=== PATIENT | male | born 1960 | race Caucasian/White ===

== ENCOUNTER 2017-07-23 17:31 | Observation (INO) | payer MEDICARE ==
[~2017-07-23] VITALS: Ht 177.8 cm; Wt 103.7 kg
[~2017-07-23 17:31] MED LIST: ASPI81TA82 PO; BACT PO; HUMALOGP SQ; LANTUSP SQ; LORT7.5T3 PO; LYRI225C PO; ZOLP10TA3
[2017-07-23 17:38] VITALS: BP 166/85; PULSE 86; RESP 16; TEMP 98.7; O2SAT 95
--- NOTE | 2017-07-23 19:12 | PD ---
HPI Chief Complaint: Skin Problem Time Seen by Provider: 19:03 Travel History International Travel<30 days: No Contact w/Intl Traveler<30days: No Traveled to known affect area: No History of Present Illness HPI 56-year-old diabetic male presents to the ED for evaluation at 2 day history of pain and redness of his left BKA stump. Pain rated 9/10, constant, worsened by ambulation. No alleviating factors reported. He states that [place] is visiting from [place] of state and has been walking more than usual. He states that the pain came on gradually and has worsened over the course of the last 2 days. Denies fever, chills, nausea, vomiting. States that is blood sugars have been in the low 400s for the last few days. He treated at home with 7.5 [place], last dose around 1 PM with no improvement of symptoms. PFSH Past Medical History Hx Anticoagulant Therapy: No Cerebrovascular Accident: Yes (?? TIA) Diabetes: Yes Past Surgical History Cardiac Surgery: Yes (LEFT LEG STENTS) Eye Surgery: Yes (LASER SURGERY) Social History Alcohol Use: No Tobacco Use: No Substance Use: No Allergies-Medications (Allergen,Severity, Reaction): Coded Allergies: penicillin G (Unverified Allergy, Mild, RASH, 07/23/17) Reported Meds & Prescriptions Reported Meds & Active Scripts Active Reported Metoclopramide (Metoclopramide HCl) 5 Mg Tab 5 Mg PO QID Zolpidem (Zolpidem Tartrate) 10 Mg Tab 10 Mg PO HS PRN Levemir Flextouch Pen Inj (Insulin Detemir) 300 unit/3 ML Pen 42 Units SQ HS Hydrocodone-Acetaminophen 7.5 Mg-325 Mg Tab 1 Tab PO Q4H PRN Lyrica (Pregabalin) 300 Mg Cap 300 Mg PO BID Humalog Inj (Insulin Human Lispro) 1,000 Unit/10 Ml Vial 10 Units SQ TIDAC Review of Systems Except as stated in HPI: all other systems reviewed are Neg Physical Exam Narrative GENERAL: Well-nourished, well-developed pleasant white male in no acute distress. SKIN: Focused skin assessment warm/dry. There is tender, indurated, erythematous and warm area of the lateral aspect of the left BKA stump. There is local inflammation but no popliteal LAD. The surgical stump incision is well -healed and without signs of infection. HEAD: Normocephalic. EYES: No scleral icterus. No injection or drainage. NECK: Supple, trachea midline. No JVD or lymphadenopathy. CARDIOVASCULAR: Regular rate and rhythm without murmurs, gallops, or rubs. RESPIRATORY: Breath sounds equal bilaterally. No accessory muscle use. GASTROINTESTINAL: Abdomen soft, non-tender, nondistended. MUSCULOSKELETAL: No cyanosis, or edema. BACK: Nontender without obvious deformity. No CVA tenderness. Data Data Last Documented VS Vital Signs Date Time Temp Pulse Resp B/P (MAP) Pulse Ox O2 Delivery O2 Flow Rate FiO2 07/23/17 20:48 18 07/23/17 17:38 98.7 86 166/85 (112) 95 Orders Orders Acetamin-Hydrocod 325-10 Mg ([place] 10-32 (07/23/17 19:15) Basic Metabolic Panel (Bmp) (07/23/17 20:07) Complete Blood Count With Diff (07/23/17 20:07) Blood Culture (07/23/17 20:07) Iv Access Insert/Monitor (07/23/17 20:07) [place] Sedimentation Rate (07/23/17 20:07) C-Reactive Protein (Crp) (07/23/17 20:07) Knee, Ltd (1 Or 2vws) (07/23/17 20:07) Morphine Inj (Morphine Inj) (07/23/17 20:15) Sodium Chlor 0.9% 1000 Ml Inj (Ns 1000 M (07/23/17 20:15) Beta Hydroxybutyrate (Acetone) (07/23/17 20:07) Vancomycin Inj (Vancomycin Inj) (07/23/17 20:15) Urinalysis - C+S If Indicated (07/23/17 20:16) Sodium Chlor 0.9% 1000 Ml Inj (Ns 1000 M (07/23/17 21:30) Admit Order (Ed Use Only) (07/23/17 21:31) Labs Laboratory Tests Test 07/23/17 20:20 07/23/17 20:25 07/23/17 21:30 White Blood Count 10.7 TH/MM3 Red Blood Count 5.21 MIL/MM3 Hemoglobin 14.5 GM/DL Hematocrit 44.1 % Mean Corpuscular Volume 84.8 FL Mean Corpuscular Hemoglobin 27.9 PG Mean Corpuscular Hemoglobin Concent 33.0 % Red Cell Distribution Width 12.3 % Platelet Count 213 TH/MM3 Mean Platelet Volume 9.7 FL Neutrophils (%) (Auto) 80.7 % Lymphocytes (%) (Auto) 9.1 % Monocytes (%) (Auto) 6.9 % Eosinophils (%) (Auto) 0.7 % Basophils (%) (Auto) 2.6 % Neutrophils # (Auto) 8.6 TH/MM3 Lymphocytes # (Auto) 1.0 TH/MM3 Monocytes # (Auto) 0.7 TH/MM3 Eosinophils # (Auto) 0.1 TH/MM3 Basophils # (Auto) 0.3 TH/MM3 CBC Comment DIFF FINAL Differential Comment Erythrocyte Sedimentation Rate 18 mm/hr Blood Urea Nitrogen 23 MG/DL Creatinine 1.20 MG/DL Random Glucose 343 MG/DL Calcium Level 8.2 MG/DL Sodium Level 133 MEQ/L Potassium Level 4.3 MEQ/L Chloride Level 99 MEQ/L Carbon Dioxide Level 26.8 MEQ/L Anion Gap 7 MEQ/L Estimat Glomerular Filtration Rate 63 ML/MIN B-Hydroxybutyrate 0.93 MMOL/L [facility] Medical Decision Making Medical Screen Exam Complete: Yes Emergency Medical Condition: Yes Differential Diagnosis Abscess versus cellulitis versus diabetic leg wound versus sepsis versus other Narrative Course 56-year-old diabetic male presents to the ED for evaluation at 2 day history of pain and redness of his left BKA stump. Also complains that the bone of the leg is more painful than usual. He is [place] from [place] and has been walking more than usual. He denies history of MRSA. States that his blood sugars have been elevated as well. The patient is afebrile, respiratory rate 16 , O2 sats 95% on room air on presentation. Physical exam reveals a 10 cm area of erythema on the lateral aspect of the left BKA stump. There is a central area of induration measuring approximately 2-3 cm. No popliteal LAD noted. Bedside ultrasound reveals no evidence of abscess. I discussed the patient with Dr. Colmenares. He recommends lab work, IV vancomycin and admission. Discussed this plan with the patient who is agreeable. 1 L normal saline and 1 g IV vancomycin administered CBC: WBC 10.7, neutrophil predominant. CMP: pending ESR: 18 CRP: pending Hydroxybutyrate: 0.93 UA: Pending X-ray left leg: No acute bony abnormality per radiology read. I spoke with Dr. López's nurse practitioner Elena who agrees to accept the patient to medicine service. Please see medicine notes for disposition. Sarah Pineda Jul 23, 2017 19:12
[2017-07-23] MEDS ORDERED: INSU1INJ5 SQ (19:15)
[2017-07-23] MEDS ORDERED: HUMALOG SQ (19:15)
[2017-07-23] MEDS ORDERED: HYDR-3580 PO (19:15)
[2017-07-23] MEDS ORDERED: METO5TAB PO (19:15)
[2017-07-23] MEDS ORDERED: ACETAMINOPHEN/HYDROcodone 325 MG/10 MG TAB PO ONE (19:15)
[2017-07-23] MEDS ORDERED: ZOLP10TA3 PO (19:15)
[2017-07-23] MEDS ORDERED: PREG300 PO (19:15)
[2017-07-23] MEDS ORDERED: MORPHINE SULFATE 2 MG/ML INJ IV PUSH ONE (20:15)
[2017-07-23] MEDS ORDERED: VANCOMYCIN 1 GM/200 ML INJ 200 ML IV ONE (20:15)
[2017-07-23] MEDS ORDERED: SODIUM CHLOR 0.9% 1000 ML INJ 1,000 ML IV ONE ×2 (20:15→21:30)
[2017-07-23] MEDS ORDERED: CLINDAMYCIN INJ 900 MG in SODIUM CHLORIDE 0.9% INJ 100 ML IV ONE (20:15)
[2017-07-23 20:39] LABS: AUTOMATED NEUTROPHIL # 8.6 TH/MM3 (1.8-7.7); BASOPHIL # 0.3 TH/MM3 (0-0.2); BASOPHIL % 2.6 % (0.0-2.0); EOSINOPHIL # 0.1 TH/MM3 (0-0.4); EOSINOPHIL % 0.7 % (0.0-4.0); HEMATOCRIT 44.1 % (39.0-51.0); HEMOGLOBIN 14.5 GM/DL (13.0-17.0); LYMPH % 9.1 % (9.0-44.0); MEAN CELL VOLUME 84.8 FL (80.0-100.0); MEAN CORPUSCULAR HEMOGLOBIN 27.9 PG (27.0-34.0); MEAN PLATELET VOLUME 9.7 FL (7.0-11.0); MONO % 6.9 % (0.0-8.0); MONOCYTE # 0.7 TH/MM3 (0-0.9); NEUT % 80.7 % (16.0-70.0); PLATELET COUNT 213 TH/MM3 (150-450); RED BLOOD COUNT 5.21 MIL/MM3 (4.50-5.90); RED CELL DISTRIBUTION WIDTH 12.3 % (11.6-17.2); WHITE BLOOD COUNT 10.7 TH/MM3 (4.0-11.0)
[2017-07-23 21:43] LABS: CALCIUM 8.2 MG/DL (8.5-10.1)
[2017-07-23 21:44] LABS: BICARBONATE 26.8 MEQ/L (21.0-32.0)
[2017-07-23] MEDS ORDERED: SODIUM CHLORIDE 0.9% FLUSH 10 ML FLUSH IV FLUSH PRN (21:45)
[2017-07-23] MEDS ORDERED: ONDANSETRON HCL 4 MG/2 ML VIAL IVP PRN (21:45)
[2017-07-23] MEDS ORDERED: DEXTROSE 50% IN WATER 50 ML VIAL(D50) IV PUSH PRN (21:45)
[2017-07-23] MEDS ORDERED: SENNOSIDES 8.6 MG TAB PO PRN (21:45)
[2017-07-23] MEDS ORDERED: NALOXONE HCL 0.4 MG/ML AMP IV PUSH PRN (21:45)
[2017-07-23] MEDS ORDERED: GLUCAGON 1 MG/ML VIAL OTHER PRN (21:45)
[2017-07-23] MEDS ORDERED: BISACODYL 10 MG SUPP RECTAL PRN (21:45)
[2017-07-23] MEDS ORDERED: ACETAMINOPHEN 325 MG TAB PO PRN (21:45)
[2017-07-23 21:47] LABS: CREATININE 1.2 MG/DL (0.60-1.30)
--- NOTE | 2017-07-23 21:50 | RADRPT ---
EXAM DATE/TIME: 07/23/2017 20:40 [place] COMPARISON: No previous studies available for comparison. INDICATIONS : Left knee pain and possible infection. MEDICAL HISTORY : None. SURGICAL HISTORY : Bilateral below the knee amputations. ENCOUNTER: Initial ACUITY: 3 days PAIN SCORE: 8/10 LOCATION: Right lateral knee. FINDINGS: Two view examination of the left knee demonstrates amputation below the knee. No acute fracture or di slocation. Osteopenia. CONCLUSION: 1. Left-sided below-knee amputation. No acute bony abnormalities. Jonas Da Silva MD on July 23, 2017 at 21:47 Board Certified Radiologist. This report was verified electronically.
[2017-07-23] MEDS ORDERED: Vancomycin Consult Pharmacy 1 EA OTHER SCH (22:00)
[2017-07-23 22:01] VITALS: BP 108/58; PULSE 73; O2SAT 96
[2017-07-23] MEDS ORDERED: VANCOMYCIN 1 GM/200 ML PREMIX IV ONE (22:15)
[2017-07-23 22:30] VITALS: BP 112/77; PULSE 65; RESP 20; TEMP 96.4; O2SAT 95
[2017-07-23] MEDS: ZOLPIDEM TARTRATE 10 MG TAB PO PRN (22:51)
[2017-07-23] MEDS: INSULIN DETEMIR 100 UNITS/ML VIAL SQ SCH (22:51)
[2017-07-23] MEDS: MORPHINE SULFATE 2 MG/ML INJ IV PUSH PRN (22:52)
[2017-07-24] VITALS: BP 112/77; PULSE 65; RESP 20; TEMP 96.4; O2SAT 95
[2017-07-24] MEDS: ACETAMINOPHEN/HYDROcodone 325 MG/10 MG TAB PO PRN ×5 (01:56→22:28)
[2017-07-24 02:20] LABS: BILIRUBIN, URINE NEG (NEG); GLUCOSE,URINE 1000 OR GREATER mg/dL (NEG); KETONE, URINE 15 mg/dL (NEG); NITRITE,URINE NEG (NEG); URINE LEUKOCYTE ESTERASE NEG (NEG)
[2017-07-24 02:24] LABS: BLOOD, URINE TRACE (NEG); URINE COLOR YELLOW (YELLW/STRAW)
[2017-07-24 02:25] LABS: RBC, URINE 0-3 /hpf (0-3); SQUAMOUS EPITHELIAL CELL URINE 0-5 /hpf (0-5); WBC, URINE 0-2 /hpf (0-5)
[2017-07-24] MEDS: MORPHINE SULFATE 2 MG/ML INJ IV PUSH PRN ×5 (03:55→23:36)
[2017-07-24] MEDS ORDERED: HEPARIN SODIUM - SQ 10,000 UNITS/ML VIAL SQ SCH (06:00)
[2017-07-24 06:34] LABS: AUTOMATED NEUTROPHIL # 5.7 TH/MM3 (1.8-7.7); BASOPHIL # 0.1 TH/MM3 (0-0.2); BASOPHIL % 0.8 % (0.0-2.0); EOSINOPHIL # 0.2 TH/MM3 (0-0.4); EOSINOPHIL % 1.9 % (0.0-4.0); HEMATOCRIT 38.1 % (39.0-51.0); HEMOGLOBIN 12.5 GM/DL (13.0-17.0); LYMPHOCYTE # 1.4 TH/MM3 (1.0-4.8); MEAN CELL VOLUME 85.5 FL (80.0-100.0); MEAN CORPUSCULAR HEMOGLOBIN 28.1 PG (27.0-34.0); MEAN CORPUSCULAR HGB CONC 32.8 % (32.0-36.0); MEAN PLATELET VOLUME 9.1 FL (7.0-11.0); MONO % 11.6 % (0.0-8.0); NEUT % 68.7 % (16.0-70.0); PLATELET COUNT 160 TH/MM3 (150-450); RED BLOOD COUNT 4.45 MIL/MM3 (4.50-5.90); RED CELL DISTRIBUTION WIDTH 12.4 % (11.6-17.2); WHITE BLOOD COUNT 8.4 TH/MM3 (4.0-11.0)
[2017-07-24 06:49] LABS: CALCIUM 7.9 MG/DL (8.5-10.1)
[2017-07-24 06:55] LABS: BICARBONATE 26.1 MEQ/L (21.0-32.0); CREATININE 0.89 MG/DL (0.60-1.30)
[2017-07-24 07:50] VITALS: BP 114/58; PULSE 64; RESP 20; TEMP 98.1; O2SAT 94
[2017-07-24] MEDS: INSULIN ASPART SUPPLEMENTAL SCALE SQ SCH ×4 (08:00→22:31)
[2017-07-24] MEDS: SODIUM CHLORIDE 0.9% FLUSH 10 ML FLUSH IV FLUSH SCH ×2 (08:07→20:31)
[2017-07-24] MEDS: PREGABALIN 100 MG CAP PO SCH ×2 (08:07→20:31)
[2017-07-24] MEDS: VANCOMYCIN 1 GM/200 ML PREMIX IV SCH ×2 (08:07→20:29)
[2017-07-24] MEDS: METOCLOPRAMIDE HCL 10 MG TAB PO SCH ×4 (08:07→20:31)
[2017-07-24] MEDS ORDERED: INFLUENZA VIRUS VACCINE (QUADRIVALENT) 0.5 ML SYR IM ONE (09:00)
[2017-07-24] MEDS ORDERED: CIPR-9 PO (11:07)
[2017-07-24] MEDS ORDERED: CEPH-460 PO (11:07)
--- NOTE | 2017-07-24 11:09 | HHI.HP ---
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 He reports severe, constant sharp pain of the left lateral below the knee amputation stump , which is nonradiating. Denies any systemic symptoms. Denies any chest pain, shortness of breath, nausea, vomiting, fevers, chills, lightheadedness, dizziness. Review of Systems Except as stated in HPI: all other systems reviewed are Neg Past Family Social History Past Medical History Diabetes mellitus Diabetic neuropathy Peripheral artery disease Insomnia. Past Surgical History Peripheral artery disease with left leg stenting. Laser eye surgery Reported Medications Reported Meds & Active Scripts Active Reported Metoclopramide (Metoclopramide HCl) 5 Mg Tab 5 Mg PO QID Zolpidem (Zolpidem Tartrate) 10 Mg Tab 10 Mg PO HS PRN Levemir Flextouch Pen Inj (Insulin Detemir) 300 unit/3 ML Pen 42 Units SQ HS Hydrocodone-Acetaminophen 7.5 Mg-325 Mg Tab 1 Tab PO Q4H PRN Lyrica (Pregabalin) 300 Mg Cap 300 Mg PO BID Humalog Inj (Insulin Human Lispro) 1,000 Unit/10 Ml Vial 10 Units SQ TIDAC Allergies: Coded Allergies: penicillin G (Unverified Allergy, Mild, RASH, 07/23/17) Family History Both parents with diabetes mellitus. Father secondary to colon cancer at age 85. Mother unknown cause of . Social History Nonsmoker. Nondrinker. Denies illicit drug. Physical Exam Vital Signs Vital Signs Date Time Temp Pulse Resp B/P (MAP) Pulse Ox O2 Delivery O2 Flow Rate FiO2 07/24/17 08:51 18 07/24/17 08:50 18 07/24/17 07:50 98.1 64 20 114/58 (76) 94 07/23/17 22:30 96.4 65 20 112/77 (89) 95 07/23/17 22:17 07/23/17 22:01 73 108/58 (75) 96 07/23/17 20:48 18 07/23/17 17:38 98.7 86 16 166/85 (112) 95 Physical Exam GENERAL: This is a well-nourished, well-developed patient, in no apparent distress. SKIN: No rashes, ecchymoses or lesions. Cool and dry. HEAD: Atraumatic. Normocephalic. No temporal or scalp tenderness. EYES: Pupils equal round and reactive. Extraocular motions intact. No scleral icterus. No injection or drainage. ENT: Nose without bleeding, purulent drainage or septal hematoma. Throat without erythema, tonsillar hypertrophy or exudate. Uvula midline. Airway patent. NECK: Trachea midline. No JVD or lymphadenopathy. Supple, nontender, no meningeal signs. CARDIOVASCULAR: Regular rate and rhythm without murmurs, gallops, or rubs. RESPIRATORY: Clear to auscultation. Breath sounds equal bilaterally. No wheezes , rales, or rhonchi. GASTROINTESTINAL: Abdomen soft, non-tender, nondistended. No hepato-splenomegaly , or palpable masses. No guarding. MUSCULOSKELETAL: Bilateral below the knee amputations. Left sided below the knee amputation with 5 x 5 cm area of erythema, with 2.5 x 2.5 cm area of centralized induration of the left lateral below the knee amputation, distal to the knee. no fluctuance or indacation of abscess. Tender to palpation. NEUROLOGICAL: Awake and alert. Cranial nerves II through XII intact. Motor and sensory grossly within normal limits. Five out of 5 muscle strength in all muscle groups. Normal speech. Laboratory Laboratory Tests Test 07/23/17 20:20 07/23/17 20:25 07/23/17 21:30 07/24/17 02:00 White Blood Count 10.7 Red Blood Count 5.21 Hemoglobin 14.5 Hematocrit 44.1 Mean Corpuscular Volume 84.8 Mean Corpuscular Hemoglobin 27.9 Mean Corpuscular Hemoglobin Concent 33.0 Red Cell Distribution Width 12.3 Platelet Count 213 Mean Platelet Volume 9.7 Neutrophils (%) (Auto) 80.7 Lymphocytes (%) (Auto) 9.1 Monocytes (%) (Auto) 6.9 Eosinophils (%) (Auto) 0.7 Basophils (%) (Auto) 2.6 Neutrophils # (Auto) 8.6 Lymphocytes # (Auto) 1.0 Monocytes # (Auto) 0.7 Eosinophils # (Auto) 0.1 Basophils # (Auto) 0.3 CBC Comment DIFF FINAL Differential Comment Erythrocyte Sedimentation Rate 18 Blood Urea Nitrogen 23 Creatinine 1.20 Random Glucose 343 Calcium Level 8.2 Sodium Level 133 Potassium Level 4.3 Chloride Level 99 Carbon Dioxide Level 26.8 Anion Gap 7 Estimat Glomerular Filtration Rate 63 C-Reactive Protein 13.00 B-Hydroxybutyrate 0.93 Urine Color YELLOW Urine Turbidity CLEAR Urine pH 5.0 Urine Specific [place] 1.032 Urine Protein 100 Urine Glucose (UA) 1000 OR GREATER Urine Ketones 15 Urine Occult Blood TRACE Urine Nitrite NEG Urine Bilirubin NEG Urine Leukocyte Esterase NEG Urine RBC 0-3 Urine WBC 0-2 Urine Squamous Epithelial Cells 0-5 Urine Bacteria NONE Microscopic Urinalysis Comment CULT NOT INDICATED Test 07/24/17 05:40 White Blood Count 8.4 Red Blood Count 4.45 Hemoglobin 12.5 Hematocrit 38.1 Mean Corpuscular Volume 85.5 Mean Corpuscular Hemoglobin 28.1 Mean Corpuscular Hemoglobin Concent 32.8 Red Cell Distribution Width 12.4 Platelet Count 160 Mean Platelet Volume 9.1 Neutrophils (%) (Auto) 68.7 Lymphocytes (%) (Auto) 17.0 Monocytes (%) (Auto) 11.6 Eosinophils (%) (Auto) 1.9 Basophils (%) (Auto) 0.8 Neutrophils # (Auto) 5.7 Lymphocytes # (Auto) 1.4 Monocytes # (Auto) 1.0 Eosinophils # (Auto) 0.2 Basophils # (Auto) 0.1 CBC Comment DIFF FINAL Differential Comment Blood Urea Nitrogen 20 Creatinine 0.89 Random Glucose 217 Calcium Level 7.9 Sodium Level 137 Potassium Level 3.7 Chloride Level 103 Carbon Dioxide Level 26.1 Anion Gap 8 Estimat Glomerular Filtration Rate 88 Date/Time Source Procedure Growth Status 07/23/17 20:25 Blood Peripheral Aerobic Blood Culture Pending Received 07/23/17 20:25 Blood Peripheral Anaerobic Blood Culture Pending Received Result Diagram: 07/24/17 0540 07/24/17 0540 Imaging Last Impressions Knee X-Ray 07/23/172006 Signed Impressions: Service Date/Time: Sunday, July 23, 2017 20:40 - CONCLUSION: 1. Left-sided below-knee amputation. No acute bony abnormalities. MD Carlene Benitez VTE Risk Assessment Caprini VTE Risk Assessment: No/Low Risk (score <= 1) Caprini Risk Assessment Model Point Value = 1 Point Value = 2 Point Value = 3 Point Value = 5 Age 41-60 Minor surgery BMI > 25 kg/m2 Swollen legs Varicose veins or History of unexplained or recurrent spontaneous Oral contraceptives or hormone replacement Sepsis (< 1 month) Serious lung disease, including pneumonia (< 1 month) Abnormal pulmonary function Acute myocardial infarction Congestive heart failure (< 1 month) History of inflammatory bowel disease Medical patient at bed rest Age 61-74 Arthroscopic surgery Major open surgery (> 45 min) Laparoscopic surgery (> 45 min) Malignancy Confined to bed (> 72 hours) Immobilizing plaster cast Central venous access Age >= 75 History of VTE Family history of VTE Factor V Leiden Prothrombin [id number] Lupus anticoagulant Anticardiolipin antibodies Elevated serum homocysteine Heparin-induced thrombocytopenia Other congenital or acquired thrombophilia Stroke (< 1 month) Elective arthroplasty Hip, pelvis, or leg fracture Acute spinal cord injury (< 1 month) Prophylaxis Regimen Total Risk Factor Score Risk Level Prophylaxis Regimen 0-1 Low Early ambulation 2 Moderate Order ONE of the following: *Sequential Compression Device (SCD) *Heparin 5000 units SQ BID 3-4 Higher Order ONE of the following medications: *Heparin 5000 units SQ TID *Enoxaparin/Lovenox 40 mg SQ daily (WT < 150 kg, CrCl > 30 mL/min) *Enoxaparin/Lovenox 30 mg SQ daily (WT < 150 kg, CrCl > 10-29 mL/min) *Enoxaparin/Lovenox 30 mg SQ BID (WT < 150 kg, CrCl > 30 mL/min) AND/OR *Sequential Compression Device (SCD) 5 or more Highest Order ONE of the following medications: *Heparin 5000 units SQ TID (Preferred with Epidurals) *Enoxaparin/Lovenox 40 mg SQ daily (WT < 150 kg, CrCl > 30 mL/min) *Enoxaparin/Lovenox 30 mg SQ daily (WT < 150 kg, CrCl > 10-29 mL/min) *Enoxaparin/Lovenox 30 mg SQ BID (WT < 150 kg, CrCl > 30 mL/min) AND *Sequential Compression Device (SCD) Assessment and Plan Assessment and Plan //Left BKA stump cellulitis. -History of MRSA. -No SIRS criteria. -Ultrasound in the ER without abscess. -Expect abscess to form over the next few days. -C vancomycin in the ER. -We'll plan discharge home on by mouth antibiotics. -Discussed with block and case maker who will arrange for primary care follow-up tomorrow. //Uncontrolled diabetes -glucose 400s on admission. -Appears to be controlled on low dose insulin regimen, home Levemir dose here. -a1c ordered and pending //Diabetic neuropathy. Chronic. Continue home medications //Insomnia. Chronic. Continue home medications. Discussed Condition With Patient, nurse. Royal Delcid MD Jul 24, 2017 11:09
[2017-07-24] MEDS ORDERED: CEPHALEXIN MONOHYDRATE 500 MG CAP PO ONE (11:15)
[2017-07-24] MEDS ORDERED: CIPROFLOXACIN 500 MG TAB PO ONE (11:15)
[2017-07-24 11:50] VITALS: BP 121/70; PULSE 57; RESP 20; TEMP 96.9; O2SAT 94
[2017-07-24 15:50] VITALS: BP 140/76; PULSE 60; RESP 20; TEMP 96.6; O2SAT 94
[2017-07-24 16:27] LABS: HEMOGLOBIN A1C 11.5 % (4.3-6.0)
[2017-07-24 20:00] VITALS: BP 140/73; PULSE 64; RESP 20; TEMP 96.3; O2SAT 97
[2017-07-24] MEDS ORDERED: CEPHALEXIN MONOHYDRATE 500 MG CAP PO SCH (20:00)
[2017-07-24] MEDS: CIPROFLOXACIN 500 MG TAB PO SCH (20:30)
[2017-07-24] MEDS: ZOLPIDEM TARTRATE 10 MG TAB PO PRN (22:27)
[2017-07-24] MEDS: INSULIN DETEMIR 100 UNITS/ML VIAL SQ SCH (22:31)
[2017-07-25] VITALS: BP 110/53; PULSE 65; RESP 20; TEMP 98.6; O2SAT 96
[2017-07-25] MEDS: ACETAMINOPHEN/HYDROcodone 325 MG/10 MG TAB PO PRN (03:05)
[2017-07-25 04:00] VITALS: BP 140/67; PULSE 64; RESP 16; TEMP 97.4; O2SAT 92
[2017-07-25] MEDS: MORPHINE SULFATE 2 MG/ML INJ IV PUSH PRN (05:56)
[2017-07-25 08:00] VITALS: BP 140/67; PULSE 64; RESP 16; TEMP 97.4; O2SAT 92
[2017-07-25] MEDS: INSULIN ASPART SUPPLEMENTAL SCALE SQ SCH (08:00)
[2017-07-25] MEDS: SODIUM CHLORIDE 0.9% FLUSH 10 ML FLUSH IV FLUSH SCH (09:00)
[2017-07-25] MEDS ORDERED: INFLUENZA VIRUS VACCINE (QUADRIVALENT) 0.5 ML SYR IM ONE (09:00)
--- NOTE | 2017-07-25 09:26 | HHI.PR ---
Subjective Remarks Follow-up cellulitis and left lower extremity. Patient seen and examined with Dr. Tripathi, general surgery, who assessed the left lower extremity for abscess. Was unable to withdraw any pus. No further recommendations for I&D. Patient denies any acute events overnight, pain is well controlled and feeling much better. Eating well, denies any abdominal pain, nausea or vomiting. Denies any chest pain, fever, chills or shortness of breath. Objective Vitals Vital Signs Date Time Temp Pulse Resp B/P (MAP) Pulse Ox O2 Delivery O2 Flow Rate FiO2 07/25/17 00:00 98.6 65 20 110/53 (72) 96 07/24/17 20:00 96.3 64 20 140/73 (95) 97 07/24/17 17:13 18 07/24/17 15:50 96.6 60 20 140/76 (97) 94 07/24/17 14:40 18 07/24/17 11:50 96.9 57 20 121/70 (87) 94 I/O 07/24/17 07/24/17 07/24/17 07/25/17 07/25/17 07/25/17 07:00 15:00 23:00 07:00 15:00 23:00 Intake Total 1060 ml 882 ml 240 ml Output Total 1000 ml 100 ml Balance 1060 ml -118 ml 140 ml Intake Oral 60 ml 682 ml 240 ml IV Total 1000 ml 200 ml Output Urine Total 1000 ml 100 ml # Voids 1 1 # Bowel Movements 0 1 0 Result Diagram: 07/24/17 0540 07/24/17 0540 Imaging Last Impressions Knee X-Ray 07/23/172006 Signed Impressions: Service Date/Time: Sunday, July 23, 2017 20:40 - CONCLUSION: 1. Left-sided below-knee amputation. No acute bony abnormalities. Jonas Da Silva MD Objective Remarks GENERAL: Well-nourished, well-developed patient in NAD. SKIN: Warm and dry. No rash. Left lower extremity redness and mild swelling. HEAD: Normocephalic. Atraumatic. EYES: Pupils equal and round. No scleral icterus. No injection or drainage. ENT: No nasal bleeding or discharge. Mucous membranes pink and moist. NECK: Supple. Trachea midline. CARDIOVASCULAR: Regular rate and rhythm. S1, S2 noted. No murmur appreciated. RESPIRATORY: No accessory muscle use. Clear to auscultation. Breath sounds equal bilaterally. GASTROINTESTINAL: Abdomen soft, non-tender, nondistended. Normoactive bowel sounds x4. MUSCULOSKELETAL: Bilateral below the knee amputation. NEUROLOGICAL: Awake and alert. No obvious cranial nerve deficits. Motor grossly within normal limits. 5/5 muscle strength in bilateral upper and lower extremities. Normal speech. PSYCHIATRIC: Appropriate mood and affect; insight and judgment normal. A/P Assessment and Plan Left BKA stump cellulitis - History of MRSA. - No SIRS criteria. - Ultrasound in the ER without abscess. - Was given vancomycin in the ER. - Dr. Tripathi assessed left lower extremity cellulitis at bedside for any presence of cellulitis. Unable to express any presence of pus. Recommendations to continue antibiotics and follow up with wound care clinic outpatient. Uncontrolled diabetes -glucose 400s on admission. -Appears to be controlled on low dose insulin regimen, home Levemir dose here. -A1c 11.5. Has been controlled here in hospital. Recommendations for patient to follow up outpatient for better control. Diabetic neuropathy. Chronic. Continue home medications Insomnia. Chronic. Continue home medications. Discharge Planning Will plan to DC today with case management assisting with setting patient up with wound care clinic. Patient does have an appointment with Dr. Nuñez set up by MORIAH on Friday and encouraged to keep appointment for follow up for left wound cellulitis and diabetes management. Elena Hsu Jul 25, 2017 09:26
[2017-07-25] MEDS: VANCOMYCIN 1 GM/200 ML PREMIX IV SCH (10:32)
[2017-07-25] MEDS: METOCLOPRAMIDE HCL 10 MG TAB PO SCH (10:34)
[2017-07-25] MEDS: CIPROFLOXACIN 500 MG TAB PO SCH (10:35)
[2017-07-25] MEDS: PREGABALIN 100 MG CAP PO SCH (10:35)
--- NOTE | 2017-07-25 10:39 | HHI.DCPOC ---
Discharge Care Plan Diagnosis: (1) Cellulitis of left leg (2) Uncontrolled diabetes mellitus Goals to Promote Your Health * To prevent worsening of your condition and complications * To maintain your health at the optimal level Directions to Meet Your Goals Take your medications as prescribed Follow your dietary instruction Follow activity as directed Keep your appointments as scheduled Take your immunizations and boosters as scheduled If your symptoms worsen call your PCP, if no PCP go to Urgent Care Center or Emergency Room Smoking is Dangerous to Your Health. Avoid second hand smoke Call the 24-hour hour crisis hotline for domestic abuse at Elena Hsu Jul 25, 2017 10:39
[2017-07-26] MEDS ORDERED: PHARMACY ORDERED LAB ONE (08:45)
== END 2017-07-25 12:43 | disposition home or self-care (01) ==
LOC: PHEFT 17:31 → PHEDA 21:32 → PH3B 22:22
PROVIDERS: ADMIT Hospitalist; ATTEND Hospitalist
DX: L03.116 Cellulitis of left lower limb (principal); T87.44 Infection of amputation stump, left lower extremity; E11.65 Type 2 diabetes mellitus with hyperglycemia; G47.00 Insomnia, unspecified; Y83.5 Amputation of limb(s) as the cause of abnormal reaction of the patient, or of later complication, without mention of misadventure at the time of the procedure; Z79.4 Long term (current) use of insulin; Z23 Encounter for immunization; Z86.14 Personal history of Methicillin resistant Staphylococcus aureus infection; Z86.73 Personal history of transient ischemic attack (TIA), and cerebral infarction without residual deficits
CPT/HCPCS: 73560; 80048; 81001; 82010; 82948; 83036; 85025; 85652; 86140; 87040; 96361; 96365; 96366; 96372; 96375; 96376; 97110; 97162; 99285; G0378; G8987; G8988; J1644; J1815; J2270; J3370; J7030; Q2038; 90686

== ENCOUNTER 2017-10-19 15:07 | Inpatient (IN) | payer MEDICARE ==
[~2017-10-19] VITALS: Ht 177.8 cm; Wt 102.9 kg
[2017-10-19 14:15] VITALS: O2SAT 93
[~2017-10-19 15:07] MED LIST changes: -ASPI81TA82 PO; -BACT PO; +CEPH-460 PO; +CIPR-9 PO; +HUMALOG SQ; -HUMALOGP SQ; +HYDR-3580 PO; +INSU1INJ5 SQ; -LANTUSP SQ; -LORT7.5T3 PO; -LYRI225C PO; +METO5TAB PO; +PREG300 PO; -ZOLP10TA3; +ZOLP10TA3 PO
[2017-10-19 15:18] VITALS: BP 156/91; PULSE 98; RESP 18; TEMP 98; O2SAT 94
[2017-10-19] MEDS ORDERED: PANTOPRAZOLE INJ 80 MG in SODIUM CHLORIDE 0.9% INJ 35 ML IV ONE (15:24)
[2017-10-19] MEDS ORDERED: SODIUM CHLOR 0.9% 1000 ML INJ 1,000 ML IV SCH (15:24)
--- NOTE | 2017-10-19 15:29 | PD ---
HPI Chief Complaint: GI Complaint Time Seen by Provider: 15:23 Travel History International Travel<30 days: No Contact w/Intl Traveler<30days: No Traveled to known affect area: No History of Present Illness HPI 56-year-old male with history of insulin-dependent diabetes, bilateral BKA, presents via EMS for evaluation of nausea and vomiting. He reports that yesterday he drank 8 beers and ate 2 slices of pizza. He began vomiting shortly afterwards at approximately 2 AM. Since then he has vomited multiple times, coffee ground emesis according to EMS. He received 4 mg of IM Zofran by the fire department, then 8 mg of Zofran by EMS and he is still vomiting actively. He reports a burning periumbilical abdominal pain. He denies chest pain or shortness of breath, fevers or chills, flank pain, diarrhea or constipation. He reports that he drinks approximately twice a week. Denies any history of abdominal surgery. Denies any history of liver disease, peptic ulcer disease. He is not on any blood thinning medication. He has no other complaints at this time. PFSH Past Medical History Hx Anticoagulant Therapy: No Cardiovascular Problems: No Cerebrovascular Accident: Yes (TIA) Diabetes: Yes Patient Takes Glucophage: No Diminished Hearing: No Gastrointestinal Disorders: Yes Genitourinary: No Musculoskeletal: Yes Neurologic: No Psychiatric: No Respiratory: No Tetanus Vaccination: Unknown Influenza Vaccination: Yes Past Surgical History Cardiac Surgery: Yes (LEFT LEG STENTS) Eye Surgery: Yes (LASER SURGERY) Social History Alcohol Use: Yes (8 BEERS TWICE WEEKLY) Tobacco Use: No Substance Use: No Allergies-Medications (Allergen,Severity, Reaction): Coded Allergies: penicillin G (Unverified Allergy, Mild, RASH, 10/19/17) Reported Meds & Prescriptions Reported Meds & Active Scripts Active Reported Metoclopramide (Metoclopramide HCl) 5 Mg Tab 5 Mg PO QID Zolpidem (Zolpidem Tartrate) 10 Mg Tab 10 Mg PO HS PRN Levemir Flextouch Pen Inj (Insulin Detemir) 300 unit/3 ML Pen 42 Units SQ HS Lyrica (Pregabalin) 300 Mg Cap 300 Mg PO BID Humalog Inj (Insulin Human Lispro) 1,000 Unit/10 Ml Vial 10 Units SQ TIDAC Review of Systems Except as stated in HPI: all other systems reviewed are Neg Physical Exam Narrative GENERAL: Well-developed well-nourished male who appears uncomfortable, vomiting small amount of sputum/coffee-ground emesis. It is Hemoccult positive. SKIN: Warm and dry. HEAD: Atraumatic. Normocephalic. EYES: Pupils equal and round. No scleral icterus. No injection or drainage. ENT: No nasal bleeding or discharge. Mucous membranes pink and moist. NECK: Trachea midline. No JVD. CARDIOVASCULAR: Regular rate and rhythm. No murmur appreciated. RESPIRATORY: No accessory muscle use. Clear to auscultation. Breath sounds equal bilaterally. GASTROINTESTINAL: Abdomen soft, mild periumbilical tenderness without guarding. MUSCULOSKELETAL: Bilateral BKA. NEUROLOGICAL: Awake and alert. No obvious cranial nerve deficits. Motor grossly within normal limits. Normal speech. PSYCHIATRIC: Appropriate mood and affect; insight and judgment normal. Data Data Last Documented VS Vital Signs Date Time Temp Pulse Resp B/P (MAP) Pulse Ox O2 Delivery O2 Flow Rate FiO2 10/19/17 15:23 18 10/19/17 15:18 98.0 98 156/91 (112) 94 Orders Orders Complete Blood Count With Diff (10/19/17 15:24) Comprehensive Metabolic Panel (10/19/17 15:24) Lipase (10/19/17 15:24) Prothrombin Time / Inr (Pt) (10/19/17 15:24) Act Partial Throm Time (Ptt) (10/19/17 15:24) Urinalysis - C+S If Indicated (10/19/17 15:24) Type And Screen (10/19/17 15:24) Iv Access Insert/Monitor (10/19/17 15:24) Sodium Chlor 0.9% 1000 Ml Inj (Ns 1000 M (10/19/17 15:24) Sodium Chloride 0.9... W/Pantoprazole In (10/19/17 15:24) Metoclopramide Inj (Reglan Inj) (10/19/17 15:30) Magnesium (Mg) (10/19/17 15:24) Electrocardiogram (10/19/17 ) Ct Abd/Pel W Iv Contrast(Rout) (10/19/17 15:24) Octreotide Inj (Sandostatin Inj) (10/19/17 15:45) Iohexol 350 Inj (Omnipaque 350 Inj) (10/19/17 17:00) Clindamycin 900 Mg/Ns Premix (Cleocin 90 (10/19/17 17:45) Admit Order (Ed Use Only) (10/19/17 17:42) Labs Laboratory Tests Test 10/19/17 15:30 White Blood Count 11.0 TH/MM3 Red Blood Count 4.96 MIL/MM3 Hemoglobin 14.7 GM/DL Hematocrit 41.7 % Mean Corpuscular Volume 84.1 FL Mean Corpuscular Hemoglobin 29.7 PG Mean Corpuscular Hemoglobin Concent 35.3 % Red Cell Distribution Width 14.7 % Platelet Count 182 TH/MM3 Mean Platelet Volume 9.3 FL Neutrophils (%) (Auto) 85.2 % Lymphocytes (%) (Auto) 5.7 % Monocytes (%) (Auto) 8.9 % Eosinophils (%) (Auto) 0.0 % Basophils (%) (Auto) 0.2 % Neutrophils # (Auto) 9.3 TH/MM3 Lymphocytes # (Auto) 0.6 TH/MM3 Monocytes # (Auto) 1.0 TH/MM3 Eosinophils # (Auto) 0.0 TH/MM3 Basophils # (Auto) 0.0 TH/MM3 CBC Comment DIFF FINAL Differential Comment Prothrombin Time 9.8 SEC Prothromb Time International Ratio 1.0 RATIO Activated Partial Thromboplast Time 23.1 SEC Blood Urea Nitrogen 16 MG/DL Creatinine 0.90 MG/DL Random Glucose 285 MG/DL Total Protein 7.9 GM/DL Albumin 3.3 GM/DL Calcium Level 9.4 MG/DL Magnesium Level 1.8 MG/DL Alkaline Phosphatase 83 U/L Aspartate Amino Transf (AST/SGOT) 14 U/L Alanine Aminotransferase (ALT/SGPT) 19 U/L Total Bilirubin 1.0 MG/DL Sodium Level 140 MEQ/L Potassium Level 3.7 MEQ/L Chloride Level 102 MEQ/L Carbon Dioxide Level 26.4 MEQ/L Anion Gap 12 MEQ/L Estimat Glomerular Filtration Rate 87 ML/MIN Lipase 50 U/L MDM Medical Decision Making Medical Screen Exam Complete: Yes Emergency Medical Condition: Yes Medical Record Reviewed: Yes Differential Diagnosis Peptic ulcer disease, Emily-Pope tear, esophageal varices, gastritis, pancreatitis Narrative Course The patient was placed on ECG monitoring pulse oximetry. A total EKG was obtained revealing sinus rhythm. Lab work, CT abdomen pelvis has been ordered. The patient will be given IV fluids, Protonix, Reglan, octreotide CT abdomen and pelvis reveals CONCLUSION: 1. Peribronchial airspace disease in the right base concerning for developing pneumonic infiltrate. This is only partially evaluated on the current exam however, basilar infiltrates can cause referred upper abdominal pain. 2. Small hiatal hernia. 3. Diffuse hepatic fatty infiltration. 4. Small, isolated gallstone. 5. Atrophic changes of the pancreas. He has had no cough or congestion but he CBC reveals a WBC count of 11, hemoglobin 14.7, neutrophil percentage 85.2, CMP reveals glucose 285 the patient will be admitted for further evaluation. HemaPrompt Point of Care Internal Pos. & Neg. Controls: Passed Gastric Specimen Occult Blood: Positive Diagnosis Primary Impression: GI bleed Additional Impressions: Nausea and vomiting Pneumonia Admitting Information Admitting Physician Requests: Admit Dionicio Smallwood Oct 19, 2017 15:29
[2017-10-19] MEDS ORDERED: METOCLOPRAMIDE HCL 10 MG/2 ML VIAL IV PUSH ONE (15:30)
[2017-10-19] MEDS ORDERED: OCTREOTIDE INJ 100 MCG/ML VIAL IV PUSH ONE (15:45)
[2017-10-19 15:58] LABS: AUTOMATED NEUTROPHIL # 9.3 TH/MM3 (1.8-7.7); BASOPHIL % 0.2 % (0.0-2.0); HEMATOCRIT 41.7 % (39.0-51.0); HEMOGLOBIN 14.7 GM/DL (13.0-17.0); LYMPH % 5.7 % (9.0-44.0); LYMPHOCYTE # 0.6 TH/MM3 (1.0-4.8); MEAN CELL VOLUME 84.1 FL (80.0-100.0); MEAN CORPUSCULAR HEMOGLOBIN 29.7 PG (27.0-34.0); MEAN CORPUSCULAR HGB CONC 35.3 % (32.0-36.0); MEAN PLATELET VOLUME 9.3 FL (7.0-11.0); MONO % 8.9 % (0.0-8.0); NEUT % 85.2 % (16.0-70.0); PLATELET COUNT 182 TH/MM3 (150-450); RED BLOOD COUNT 4.96 MIL/MM3 (4.50-5.90); RED CELL DISTRIBUTION WIDTH 14.7 % (11.6-17.2)
[2017-10-19 16:04] LABS: PROTHROMBIN TIME - PATIENT 9.8 SEC (9.8-11.6)
[2017-10-19 16:15] LABS: ALBUMIN 3.3 GM/DL (3.4-5.0); ALT (GPT) 19 U/L (12-78); AST (GOT) 14 U/L (15-37); BICARBONATE 26.4 MEQ/L (21.0-32.0); BLOOD UREA NITROGEN 16 MG/DL (7-18); CALCIUM 9.4 MG/DL (8.5-10.1); CHLORIDE 102 MEQ/L (98-107); GLOMERULAR FILTRATION RATE 87 ML/MIN (>89); GLUCOSE,RANDOM 285 MG/DL (74-106); MAGNESIUM 1.8 MG/DL (1.5-2.5); SODIUM (NA) 140 MEQ/L (136-145)
[2017-10-19 16:17] LABS: ALKALINE PHOSPHATASE 83 U/L (45-117); TOTAL PROTEIN 7.9 GM/DL (6.4-8.2)
--- NOTE | 2017-10-19 16:43 | PD ---
Data Data Last Documented VS Vital Signs Date Time Temp Pulse Resp B/P (MAP) Pulse Ox O2 Delivery O2 Flow Rate FiO2 10/19/17 15:23 18 10/19/17 15:18 98.0 98 156/91 (112) 94 Orders Orders Complete Blood Count With Diff (10/19/17 15:24) Comprehensive Metabolic Panel (10/19/17 15:24) Lipase (10/19/17 15:24) Prothrombin Time / Inr (Pt) (10/19/17 15:24) Act Partial Throm Time (Ptt) (10/19/17 15:24) Urinalysis - C+S If Indicated (10/19/17 15:24) Type And Screen (10/19/17 15:24) Iv Access Insert/Monitor (10/19/17 15:24) Sodium Chlor 0.9% 1000 Ml Inj (Ns 1000 M (10/19/17 15:24) Sodium Chloride 0.9... W/Pantoprazole In (10/19/17 15:24) Metoclopramide Inj (Reglan Inj) (10/19/17 15:30) Magnesium (Mg) (10/19/17 15:24) Electrocardiogram (10/19/17 ) Ct Abd/Pel W Iv Contrast(Rout) (10/19/17 15:24) Octreotide Inj (Sandostatin Inj) (10/19/17 15:45) Iohexol 350 Inj (Omnipaque 350 Inj) (10/19/17 17:00) Clindamycin 900 Mg/Ns Premix (Cleocin 90 (10/19/17 17:45) Admit Order (Ed Use Only) (10/19/17 17:42) Labs Laboratory Tests Test 10/19/17 15:30 White Blood Count 11.0 TH/MM3 Red Blood Count 4.96 MIL/MM3 Hemoglobin 14.7 GM/DL Hematocrit 41.7 % Mean Corpuscular Volume 84.1 FL Mean Corpuscular Hemoglobin 29.7 PG Mean Corpuscular Hemoglobin Concent 35.3 % Red Cell Distribution Width 14.7 % Platelet Count 182 TH/MM3 Mean Platelet Volume 9.3 FL Neutrophils (%) (Auto) 85.2 % Lymphocytes (%) (Auto) 5.7 % Monocytes (%) (Auto) 8.9 % Eosinophils (%) (Auto) 0.0 % Basophils (%) (Auto) 0.2 % Neutrophils # (Auto) 9.3 TH/MM3 Lymphocytes # (Auto) 0.6 TH/MM3 Monocytes # (Auto) 1.0 TH/MM3 Eosinophils # (Auto) 0.0 TH/MM3 Basophils # (Auto) 0.0 TH/MM3 CBC Comment DIFF FINAL Differential Comment Prothrombin Time 9.8 SEC Prothromb Time International Ratio 1.0 RATIO Activated Partial Thromboplast Time 23.1 SEC Blood Urea Nitrogen 16 MG/DL Creatinine 0.90 MG/DL Random Glucose 285 MG/DL Total Protein 7.9 GM/DL Albumin 3.3 GM/DL Calcium Level 9.4 MG/DL Magnesium Level 1.8 MG/DL Alkaline Phosphatase 83 U/L Aspartate Amino Transf (AST/SGOT) 14 U/L Alanine Aminotransferase (ALT/SGPT) 19 U/L Total Bilirubin 1.0 MG/DL Sodium Level 140 MEQ/L Potassium Level 3.7 MEQ/L Chloride Level 102 MEQ/L Carbon Dioxide Level 26.4 MEQ/L Anion Gap 12 MEQ/L Estimat Glomerular Filtration Rate 87 ML/MIN Lipase 50 U/L MDM Supervised Visit with TORIE: Yes Narrative Course I, Dr. Davis, have reviewed the advance practice practitioner's documentation and am in agreement, met with the patient face to face, made the diagnosis, and the medical decision making was done by me. *My assessment and Findings: Patient seen and examined by me in addition to Dionicio Smallwood, patient has some intermittent low saturations was tolerating nasal cannula, does not have a history of lung disease, his chief complaint however is hematemesis and the patient does have a drinking history and needs admission to the hospital for further workup of probable pneumonia as well as GI bleeding. Agree with Dionicio Smallwood segmentation otherwise per Diagnosis Primary Impression: Pneumonia Additional Impression: GI bleed Admitting Information Admitting Physician Requests: Admit Condition: Moshe Oviedo MD Oct 19, 2017 16:42
[2017-10-19] MEDS ORDERED: IOHEXOL 350 MG/ML 10 ML VIAL (for RAD DIAG) IVCONTRAST ONE (17:00)
--- NOTE | 2017-10-19 17:30 | RADRPT ---
EXAM DATE/TIME: 10/19/2017 16:58 [facility] COMPARISON: No previous studies available for comparison. INDICATIONS : Epigastric pain with nausea and vomiting today. IV CONTRAST: 80 cc Omnipaque 350 (iohexol) IV ORAL CONTRAST: No oral contrast ingested. RADIATION DOSE: 16.79 CTDIvol (mGy) MEDICAL HISTORY : Stroke. diabetes SURGICAL HISTORY : None. ENCOUNTER: Initial ACUITY: 1 day PAIN SCALE: 8/10 LOCATION: epigastric abdomen TECHNIQUE: Volumetric scanning of the abdomen and pelvis was performed. Using automated exposure control and ad justment of the mA and/or kV according to patient size, radiation dose was kept as low as reasonably achievable to obtain optimal diagnostic quality images. DICOM format image data is available electro nically for review and comparison. FINDINGS: LOWER LUNGS: Peribronchial airspace disease in the right base is concerning for a developing pneumonic infiltrate. Left lung bases clear. Small hiatal hernia. LIVER: Homogeneous, but decreased density without lesion. There is no dilation of the biliary tree. There a ppears to be small, isolated gallstone in the dependent portion of the gallbladder lumen. SPLEEN: Normal size without lesion. PANCREAS: Pancreas appears atrophic with some fatty infiltration. KIDNEYS: Normal in size and shape. There is no mass, stone or hydronephrosis. ADRENAL GLANDS: Within normal limits. VASCULAR: There is no aortic aneurysm. BOWEL/MESENTERY: The stomach, small bowel, and colon demonstrate no acute abnormality. There is no free intraperitone al air or fluid. ABDOMINAL WALL: Within normal limits. RETROPERITONEUM: There is no lymphadenopathy. BLADDER: No wall thickening or mass. REPRODUCTIVE: Penile prostheses with the reservoir to the left of the bladder. INGUINAL: There is no lymphadenopathy or hernia. MUSCULOSKELETAL: Within normal limits for patient age. CONCLUSION: 1. Peribronchial airspace disease in the right base concerning for developing pneumonic infiltrate. T his is only partially evaluated on the current exam however, basilar infiltrates can cause referred u pper abdominal pain. 2. Small hiatal hernia. 3. Diffuse hepatic fatty infiltration. 4. Small, isolated gallstone. 5. Atrophic changes of the pancreas. Omari Ross MD on October 19, 2017 at 17:20 Board Certified Radiologist. This report was verified electronically.
[2017-10-19] MEDS ORDERED: SENNOSIDES 8.6 MG TAB PO PRN (17:45)
[2017-10-19] MEDS ORDERED: DEXTROSE 50% IN WATER 50 ML VIAL(D50) IV PUSH PRN (17:45)
[2017-10-19] MEDS ORDERED: ACETAMINOPHEN 325 MG TAB PO PRN (17:45)
[2017-10-19] MEDS ORDERED: MAGNESIUM HYDROXIDE SUSP 30 ML CUP PO PRN (17:45)
[2017-10-19] MEDS ORDERED: LACTULOSE SYRUP 20 GM/30 ML CUP PO PRN (17:45)
[2017-10-19] MEDS ORDERED: NALOXONE HCL 0.4 MG/ML AMP IV PUSH PRN (17:45)
[2017-10-19] MEDS ORDERED: BISACODYL 10 MG SUPP RECTAL PRN (17:45)
[2017-10-19] MEDS ORDERED: GLUCAGON 1 MG/ML VIAL OTHER PRN (17:45)
[2017-10-19] MEDS ORDERED: CLINDAMYCIN 900 MG/NS PREMIX 50 ML IV ONE (17:45)
[2017-10-19] MEDS ORDERED: SODIUM CHLORIDE 0.9% FLUSH 10 ML FLUSH IV FLUSH PRN (17:45)
[2017-10-19] MEDS ORDERED: ZOLPIDEM TARTRATE 10 MG TAB PO PRN (17:45)
[2017-10-19] MEDS: SODIUM CHLOR 0.45% 1000 ML INJ 1,000 ML IV SCH (17:53)
[2017-10-19 18:00] VITALS: BP 165/87; PULSE 94; RESP 18; O2SAT 99
[2017-10-19] MEDS: METOCLOPRAMIDE HCL 10 MG TAB PO SCH ×2 (18:00→20:37)
[2017-10-19] MEDS: PANTOPRAZOLE SODIUM 40 MG VIAL IV PUSH SCH (18:27)
[2017-10-19] MEDS ORDERED: MORPHINE SULFATE 2 MG/ML SYRINGE IV PUSH PRN (18:30)
[2017-10-19] MEDS: METOCLOPRAMIDE HCL 10 MG/2 ML VIAL IV PUSH PRN (19:32)
--- NOTE | 2017-10-19 19:33 | HHI.HP ---
[facility] Service [facility] Primary Care Physician Non-Staff Admission Diagnosis GI bleed, pneumonia Diagnoses: Chief Complaint: hematemesis Travel History International Travel<30 Days: No Contact w/Intl Traveler <30 Da: No Traveled to Known Affected Are: No History of Present Illness 56-year-old male with a history of MRSA, IDDM with neuropathy, bilateral BKA who presented to ED for evaluation of nausea and vomiting ground coffee emesis after drinking 8 beers. Patient says he is not an everyday drinker. Says he went to a constitution party yesterday he drank 8 beers and ate 2 slices of pizza. He began vomiting shortly afterwards at approximately 2 AM. Since then he has vomited multiple times, coffee ground emesis according to EMS. He received 4 mg of IM Zofran by the fire department, then 8 mg of Zofran by EMS and he is still vomiting actively. He reports a burning periumbilical abdominal pain. He denies chest pain or shortness of breath, fevers or chills, flank pain, diarrhea or constipation. He reports that he drinks approximately twice a week. Denies any history of abdominal surgery. Denies any history of liver disease, peptic ulcer disease. He is not on any blood thinning medication. He has no other complaints at this time. Review of Systems Except as stated in HPI: all other systems reviewed are Neg Past Family Social History Past Medical History Diabetes mellitus Diabetic neuropathy Peripheral artery disease Insomnia. Past Surgical History Peripheral artery disease with left leg stenting. Laser eye surgery Reported Medications Last Impressions Abdomen/Pelvis CT 10/19/17 1524 Signed Impressions: Service Date/Time: Thursday, October 19, 2017 16:58 - CONCLUSION: 1. Peribronchial airspace disease in the right base concerning for developing pneumonic infiltrate. This is only partially evaluated on the current exam however, basilar infiltrates can cause referred upper abdominal pain. 2. Small hiatal hernia. 3. Diffuse hepatic fatty infiltration. 4. Small, isolated gallstone. 5. Atrophic changes of the pancreas. Omari Ross MD Allergies: Coded Allergies: penicillin G (Unverified Allergy, Mild, RASH, 10/19/17) Family History Both parents with diabetes mellitus. Father secondary to colon cancer at age 85. Mother unknown cause of . Social History Nonsmoker. Nondrinker. Denies illicit drug. Physical Exam Vital Signs Vital Signs Date Time Temp Pulse Resp B/P (MAP) Pulse Ox O2 Delivery O2 Flow Rate FiO2 10/19/17 18:52 10/19/17 18:00 94 18 165/87 (113) 99 Room Air 10/19/17 15:23 18 10/19/17 15:18 98.0 98 18 156/91 (112) 94 10/19/17 14:15 93 21 Physical Exam GENERAL: This is a well-nourished, well-developed patient, in no apparent distress. SKIN: No rashes, ecchymoses or lesions. Cool and dry. HEAD: Atraumatic. Normocephalic. No temporal or scalp tenderness. EYES: Pupils equal round and reactive. Extraocular motions intact. No scleral icterus. No injection or drainage. ENT: Nose without bleeding, purulent drainage or septal hematoma. Throat without erythema, tonsillar hypertrophy or exudate. Uvula midline. Airway patent. NECK: Trachea midline. No JVD or lymphadenopathy. Supple, nontender, no meningeal signs. CARDIOVASCULAR: Regular rate and rhythm without murmurs, gallops, or rubs. RESPIRATORY: decreased breath sounds . Bronchial sounds bibasilar crackles. No wheezes, rales. GASTROINTESTINAL: Abdomen soft, non-tender, nondistended. No hepato-splenomegaly , or palpable masses. No guarding. MUSCULOSKELETAL: Bilateral BKA. No joint tenderness, effusion, or edema noted. NEUROLOGICAL: Awake and alert. Cranial nerves II through XII intact. Motor and sensory grossly within normal limits. Five out of 5 muscle strength in all muscle groups. Normal speech. Laboratory Laboratory Tests Test 10/19/17 15:30 White Blood Count 11.0 Red Blood Count 4.96 Hemoglobin 14.7 Hematocrit 41.7 Mean Corpuscular Volume 84.1 Mean Corpuscular Hemoglobin 29.7 Mean Corpuscular Hemoglobin Concent 35.3 Red Cell Distribution Width 14.7 Platelet Count 182 Mean Platelet Volume 9.3 Neutrophils (%) (Auto) 85.2 Lymphocytes (%) (Auto) 5.7 Monocytes (%) (Auto) 8.9 Eosinophils (%) (Auto) 0.0 Basophils (%) (Auto) 0.2 Neutrophils # (Auto) 9.3 Lymphocytes # (Auto) 0.6 Monocytes # (Auto) 1.0 Eosinophils # (Auto) 0.0 Basophils # (Auto) 0.0 CBC Comment DIFF FINAL Differential Comment Prothrombin Time 9.8 Prothromb Time International Ratio 1.0 Activated Partial Thromboplast Time 23.1 Blood Urea Nitrogen 16 Creatinine 0.90 Random Glucose 285 Total Protein 7.9 Albumin 3.3 Calcium Level 9.4 Magnesium Level 1.8 Alkaline Phosphatase 83 Aspartate Amino Transf (AST/SGOT) 14 Alanine Aminotransferase (ALT/SGPT) 19 Total Bilirubin 1.0 Sodium Level 140 Potassium Level 3.7 Chloride Level 102 Carbon Dioxide Level 26.4 Anion Gap 12 Estimat Glomerular Filtration Rate 87 Lipase 50 Result Diagram: 10/19/17 1530 10/19/17 1530 Imaging Last Impressions Abdomen/Pelvis CT 10/19/17 1524 Signed Impressions: Service Date/Time: Thursday, October 19, 2017 16:58 - CONCLUSION: 1. Peribronchial airspace disease in the right base concerning for developing pneumonic infiltrate. This is only partially evaluated on the current exam however, basilar infiltrates can cause referred upper abdominal pain. 2. Small hiatal hernia. 3. Diffuse hepatic fatty infiltration. 4. Small, isolated gallstone. 5. Atrophic changes of the pancreas. MD Carlene Myers VTE Risk Assessment Caprini VTE Risk Assessment: Mod/High Risk (score >= 2) Caprini Risk Assessment Model Point Value = 1 Point Value = 2 Point Value = 3 Point Value = 5 Age 41-60 Minor surgery BMI > 25 kg/m2 Swollen legs Varicose veins or History of unexplained or recurrent spontaneous Oral contraceptives or hormone replacement Sepsis (< 1 month) Serious lung disease, including pneumonia (< 1 month) Abnormal pulmonary function Acute myocardial infarction Congestive heart failure (< 1 month) History of inflammatory bowel disease Medical patient at bed rest Age 61-74 Arthroscopic surgery Major open surgery (> 45 min) Laparoscopic surgery (> 45 min) Malignancy Confined to bed (> 72 hours) Immobilizing plaster cast Central venous access Age >= 75 History of VTE Family history of VTE Factor V Leiden Prothrombin [id number] Lupus anticoagulant Anticardiolipin antibodies Elevated serum homocysteine Heparin-induced thrombocytopenia Other congenital or acquired thrombophilia Stroke (< 1 month) Elective arthroplasty Hip, pelvis, or leg fracture Acute spinal cord injury (< 1 month) Prophylaxis Regimen Total Risk Factor Score Risk Level Prophylaxis Regimen 0-1 Low Early ambulation 2 Moderate Order ONE of the following: *Sequential Compression Device (SCD) *Heparin 5000 units SQ BID 3-4 Higher Order ONE of the following medications: *Heparin 5000 units SQ TID *Enoxaparin/Lovenox 40 mg SQ daily (WT < 150 kg, CrCl > 30 mL/min) *Enoxaparin/Lovenox 30 mg SQ daily (WT < 150 kg, CrCl > 10-29 mL/min) *Enoxaparin/Lovenox 30 mg SQ BID (WT < 150 kg, CrCl > 30 mL/min) AND/OR *Sequential Compression Device (SCD) 5 or more Highest Order ONE of the following medications: *Heparin 5000 units SQ TID (Preferred with Epidurals) *Enoxaparin/Lovenox 40 mg SQ daily (WT < 150 kg, CrCl > 30 mL/min) *Enoxaparin/Lovenox 30 mg SQ daily (WT < 150 kg, CrCl > 10-29 mL/min) *Enoxaparin/Lovenox 30 mg SQ BID (WT < 150 kg, CrCl > 30 mL/min) AND *Sequential Compression Device (SCD) Assessment and Plan Assessment and Plan Upper GI bleed. EtOH use binge drinking. Counselled extensively. No signs of withdrawals at this time monitor for withdrawal symptoms. Received bolus of pantoprazole in the emergency room and octreotide. Continue omeprazole 40 mg IV twice daily Consult GI for further evaluation and recommendations N.p.o. Hemoglobin is stable at this time. Monitor H&H and transfuse if hemoglobin less than 7 or if patient is symptomatic. CT AP reviewed and findings discussed with physician and PA. Bilateral aspiration pneumonia. CT P/A reviewed reveals bibasilar infiltrates. Start clindamycin IV. Check blood cultures. Check sputum cultures. No signs of sepsis at this time. Monitor closely. Bilateral BKA . Chronic back pain. Patient is nothing by mouth morphine 2 mg every 4 hours as needed. Resume chronic medications [place] 7.5/325 4 hours. P.o. Uncontrolled insulin-dependent diabetes mellitus. BS 275 on admission -Appears to be controlled on low dose insulin regimen, home Levemir dose here. -a1c ordered and pending Diabetic neuropathy. Chronic. Continue home medications Insomnia. Chronic. Continue home medications. Discussed Condition With Patient, nurse, ED physician. Physician Certification 2 Midnight Certification Type: Admission for Inpatient Services Order for Inpatient Services The services are ordered in accordance with Medicare regulations or non- Medicare payer requirements, as applicable. In the case of services not specified as inpatient-only, they are appropriately provided as inpatient services in accordance with the 2-midnight benchmark. Estimated LOS (days): 3 days is the estimated time the patient will need to remain in the hospital, assuming treatment plan goals are met and no additional complications. Post-Hospital Plan: Home Kristin Man MD Oct 19, 2017 19:32
[2017-10-19 20:00] VITALS: BP 120/89; PULSE 80; RESP 20; TEMP 97.1; O2SAT 95
[2017-10-19] MEDS: DOCUSATE SODIUM 50 MG/SENNA 8.6 MG TAB PO SCH (20:37)
[2017-10-19] MEDS: INSULIN ASPART SUPPLEMENTAL SCALE SQ SCH (20:38)
[2017-10-19] MEDS: SODIUM CHLORIDE 0.9% FLUSH 10 ML FLUSH IV FLUSH SCH (20:38)
[2017-10-19] MEDS: PREGABALIN 100 MG CAP PO SCH (21:00)
[2017-10-19] MEDS: ONDANSETRON HCL 4 MG/2 ML VIAL IVP PRN (21:19)
[2017-10-19 23:44] VITALS: PULSE 74
[2017-10-19] MEDS: CLINDAMYCIN 900 MG/NS PREMIX 50 ML IV SCH (23:51)
--- NOTE | 2017-10-19 23:57 | EKG ---
Date Performed: 10/19/2017 Time Performed: 15:24:49 PTAGE: 56 years EKG: Sinus rhythm NORMAL ECG Compared to PREVIOUS TRACING , rate has increased from bradycardia DOCTOR: Kenyon Palacio Interpretating Date/Time 10/19/2017 23:56:25
[2017-10-20] VITALS (15 sets, daily range): BP systolic 117–203; BP diastolic 63–100; PULSE 64–94; RESP 16–20; TEMP 97.7–98.8; O2SAT 91–98
[2017-10-20 01:46] LABS: BILIRUBIN, URINE NEG (NEG); BLOOD, URINE MOD (NEG); GLUCOSE,URINE 1000 mg/dL (NEG); KETONE, URINE 10 mg/dL (NEG); NITRITE,URINE NEG (NEG); PH, URINE 6.5 (5.0-8.5); URINE COLOR YELLOW (YELLW/STRAW); URINE LEUKOCYTE ESTERASE NEG (NEG)
[2017-10-20] MEDS: ACETAMINOPHEN/HYDROcodone 325 MG/7.5 MG TAB PO PRN (01:56)
[2017-10-20 05:11] LABS: AUTOMATED NEUTROPHIL # 8.2 TH/MM3 (1.8-7.7); BASOPHIL % 0.3 % (0.0-2.0); EOSINOPHIL % 0.1 % (0.0-4.0); HEMATOCRIT 38.7 % (39.0-51.0); HEMOGLOBIN 12.9 GM/DL (13.0-17.0); LYMPH % 10.2 % (9.0-44.0); LYMPHOCYTE # 1.1 TH/MM3 (1.0-4.8); MEAN CELL VOLUME 86.1 FL (80.0-100.0); MEAN CORPUSCULAR HEMOGLOBIN 28.8 PG (27.0-34.0); MEAN CORPUSCULAR HGB CONC 33.4 % (32.0-36.0); MEAN PLATELET VOLUME 9.9 FL (7.0-11.0); MONO % 11.2 % (0.0-8.0); MONOCYTE # 1.2 TH/MM3 (0-0.9); NEUT % 78.2 % (16.0-70.0); PLATELET COUNT 192 TH/MM3 (150-450); RED BLOOD COUNT 4.49 MIL/MM3 (4.50-5.90); RED CELL DISTRIBUTION WIDTH 14.7 % (11.6-17.2); WHITE BLOOD COUNT 10.4 TH/MM3 (4.0-11.0)
[2017-10-20] MEDS: CLINDAMYCIN 900 MG/NS PREMIX 50 ML IV SCH ×3 (05:17→19:09)
[2017-10-20] MEDS: PANTOPRAZOLE SODIUM 40 MG VIAL IV PUSH SCH ×2 (05:17→18:16)
[2017-10-20] MEDS: SODIUM CHLOR 0.45% 1000 ML INJ 1,000 ML IV SCH (05:17)
[2017-10-20 05:34] LABS: ALBUMIN 2.7 GM/DL (3.4-5.0); ALKALINE PHOSPHATASE 80 U/L (45-117); ALT (GPT) 15 U/L (12-78); AST (GOT) 15 U/L (15-37); BICARBONATE 26.3 MEQ/L (21.0-32.0); BLOOD UREA NITROGEN 19 MG/DL (7-18); CALCIUM 8.5 MG/DL (8.5-10.1); CHLORIDE 105 MEQ/L (98-107); CREATININE 1.11 MG/DL (0.60-1.30); GLOMERULAR FILTRATION RATE 69 ML/MIN (>89); GLUCOSE,RANDOM 263 MG/DL (74-106); SODIUM (NA) 143 MEQ/L (136-145); TOTAL PROTEIN 7.2 GM/DL (6.4-8.2)
[2017-10-20] MEDS: METOCLOPRAMIDE HCL 10 MG TAB PO SCH ×4 (08:27→20:58)
[2017-10-20] MEDS: PREGABALIN 100 MG CAP PO SCH ×4 (08:28→20:58)
[2017-10-20] MEDS: SODIUM CHLORIDE 0.9% FLUSH 10 ML FLUSH IV FLUSH SCH ×3 (08:28→21:02)
[2017-10-20] MEDS: DOCUSATE SODIUM 50 MG/SENNA 8.6 MG TAB PO SCH (08:28)
--- NOTE | 2017-10-20 09:07 | HHI.PR ---
Subjective Remarks This is a pleasant 56-year-old male with DM II with secondary peripheral neuropathy, Bilateral BKA, who came to ER with nausea, vomit and coffee ground emesis after drinking 8 beers, Seen in his bedroom continue with Nausea and vomit no diarrhea. Seen in the presence of nurse in his bedroom. Objective Vital Signs Date Time Temp Pulse Resp B/P (MAP) Pulse Ox O2 Delivery O2 Flow Rate FiO2 10/20/17 08:00 97.7 70 20 179/80 (113) 91 10/20/17 05:10 98.6 70 16 120/63 (82) 92 10/20/17 03:43 71 10/20/17 00:20 98.8 84 19 171/79 (109) 95 10/20/17 00:00 98.8 64 19 171/79 (109) 95 10/19/17 23:44 74 10/19/17 20:00 97.1 80 20 120/89 (99) 95 10/19/17 18:52 10/19/17 18:00 94 18 165/87 (113) 99 Room Air 10/19/17 15:23 18 10/19/17 15:18 98.0 98 18 156/91 (112) 94 10/19/17 14:15 93 21 I/O 10/19/17 10/19/17 10/19/17 10/20/17 10/20/17 10/20/17 07:00 15:00 23:00 07:00 15:00 23:00 Intake Total 50 ml 1300 ml Output Total 0 ml Balance 50 ml 1300 ml Intake Oral 250 ml IV Total 50 ml 1050 ml Output Urine Total 0 ml # Bowel Movements 0 Result Diagram: 10/20/17 0400 10/20/17 0400 Imaging Last Impressions Abdomen/Pelvis CT 10/19/17 1524 Signed Impressions: Service Date/Time: Thursday, October 19, 2017 16:58 - CONCLUSION: 1. Peribronchial airspace disease in the right base concerning for developing pneumonic infiltrate. This is only partially evaluated on the current exam however, basilar infiltrates can cause referred upper abdominal pain. 2. Small hiatal hernia. 3. Diffuse hepatic fatty infiltration. 4. Small, isolated gallstone. 5. Atrophic changes of the pancreas. Omari Ross MD Procedures None Other Results Laboratory Tests Test 10/19/17 15:30 10/20/17 01:30 10/20/17 04:00 Prothrombin Time 9.8 SEC Prothromb Time International Ratio 1.0 RATIO Activated Partial Thromboplast Time 23.1 SEC Blood Urea Nitrogen 16 MG/DL 19 MG/DL Creatinine 0.90 MG/DL 1.11 MG/DL Random Glucose 285 MG/DL 263 MG/DL Total Protein 7.9 GM/DL 7.2 GM/DL Albumin 3.3 GM/DL 2.7 GM/DL Calcium Level 9.4 MG/DL 8.5 MG/DL Magnesium Level 1.8 MG/DL Alkaline Phosphatase 83 U/L 80 U/L Aspartate Amino Transf (AST/SGOT) 14 U/L 15 U/L Alanine Aminotransferase (ALT/SGPT) 19 U/L 15 U/L Total Bilirubin 1.0 MG/DL 1.0 MG/DL Sodium Level 140 MEQ/L 143 MEQ/L Potassium Level 3.7 MEQ/L 3.8 MEQ/L Chloride Level 102 MEQ/L 105 MEQ/L Carbon Dioxide Level 26.4 MEQ/L 26.3 MEQ/L Lipase 50 U/L Urine Color YELLOW Urine Turbidity CLEAR Urine pH 6.5 Urine Specific [place] 1.033 Urine Protein 300 mg/dL Urine Glucose (UA) 1000 mg/dL Urine Ketones 10 mg/dL Urine Occult Blood MOD Urine Nitrite NEG Urine Bilirubin NEG Urine Urobilinogen LESS THAN 2.0 MG/DL Urine Leukocyte Esterase NEG Urine RBC 1 /hpf Urine WBC 1 /hpf Microscopic Urinalysis Comment CULT NOT INDICATED White Blood Count 10.4 TH/MM3 Red Blood Count 4.49 MIL/MM3 Hemoglobin 12.9 GM/DL Hematocrit 38.7 % Mean Corpuscular Volume 86.1 FL Mean Corpuscular Hemoglobin 28.8 PG Mean Corpuscular Hemoglobin Concent 33.4 % Red Cell Distribution Width 14.7 % Platelet Count 192 TH/MM3 Mean Platelet Volume 9.9 FL Neutrophils (%) (Auto) 78.2 % Lymphocytes (%) (Auto) 10.2 % Monocytes (%) (Auto) 11.2 % Eosinophils (%) (Auto) 0.1 % Basophils (%) (Auto) 0.3 % Neutrophils # (Auto) 8.2 TH/MM3 Lymphocytes # (Auto) 1.1 TH/MM3 Monocytes # (Auto) 1.2 TH/MM3 Eosinophils # (Auto) 0.0 TH/MM3 Basophils # (Auto) 0.0 TH/MM3 CBC Comment DIFF FINAL Differential Comment Anion Gap 12 MEQ/L Estimat Glomerular Filtration Rate 69 ML/MIN Objective Remarks GENERAL: Mild distress secondary to nausea and vomit. SKIN: No rashes, ecchymoses or lesions. Cool and dry. HEAD: Atraumatic. Normocephalic. EYES: Pupils equal round and reactive. Extraocular motions intact. ENT: Nose without bleeding, purulent drainage or septal hematoma. NECK: Trachea midline. No JVD or lymphadenopathy. Supple, nontender, no meningeal signs. CARDIOVASCULAR: Regular rate and rhythm without murmurs, gallops, or rubs. RESPIRATORY: decreased breath sounds . No wheezing or crackles. GASTROINTESTINAL: Abdomen soft, non-tender, nondistended. MUSCULOSKELETAL: Bilateral BKA. No joint tenderness, effusion, or edema noted. NEUROLOGICAL: Awake and alert. Cranial nerves II through XII intact. no focal deficits. Medications and IVs Current Medications Medications (Trade) Dose Ordered Sig/Tim Route Start Time Stop Time Status Last Admin Sodium Chloride 1,000 ml @ 75 mls/hr [id number] IV 10/19/17 17:41 10/20/17 05:17 (NS Flush) 2 ml UNSCH PRN IV FLUSH 10/19/17 17:45 (NS Flush) 2 ml BID IV FLUSH 10/19/17 21:00 10/19/17 20:38 (Tylenol) 650 mg Q4H PRN PO 10/19/17 17:45 (Zofran Inj) 4 mg Q6H PRN IVP 10/19/17 17:45 10/19/17 21:19 (Ambien) 5 mg HS PRN PO 10/19/17 17:45 (Narcan Inj) 0.4 mg UNSCH PRN IV PUSH 10/19/17 17:45 (Dot-Colace) 1 tab BID PO 10/19/17 21:00 10/20/17 08:28 (Milk Of Magnesia Liq) 30 ml Q12H PRN PO 10/19/17 17:45 (Senokot) 17.2 mg Q12H PRN PO 10/19/17 17:45 (Dulcolax Supp) 10 mg DAILY PRN RECTAL 10/19/17 17:45 (Lactulose Liq) 30 ml DAILY PRN PO 10/19/17 17:45 (Reglan) 5 mg QID PO 10/19/17 18:00 10/20/17 08:27 (Ambien) 10 mg HS PRN PO 10/19/17 17:45 10/19/17 21:28 (Lyrica) 300 mg BID PO 10/19/17 21:00 10/20/17 08:28 (D50w (Vial) Inj) 50 ml UNSCH PRN IV PUSH 10/19/17 17:45 (Glucagon Inj) 1 mg UNSCH PRN OTHER 10/19/17 17:45 (NovoLOG SUPPLEMENTAL SCALE) 1 ACHS SLIDING SCALE SQ 10/19/17 21:00 10/19/17 20:38 Clindamycin/ Sodium Chloride 50 ml @ 100 mls/hr Q6H IV 10/20/17 00:00 10/20/17 05:17 ([place] 7.5-325 Mg) 1 tab Q4H PRN PO 10/19/17 18:15 10/20/17 01:56 (Protonix Inj) 40 mg Q12H IV PUSH 10/19/17 18:00 10/20/17 05:17 (Reglan Inj) 5 mg Q8H PRN IV PUSH 10/19/17 18:15 10/19/17 19:32 (Morphine Inj) 2 mg Q4H PRN IV PUSH 10/19/17 18:30 10/19/17 18:28 (Flu (Quadrivalent) Vaccine Inj) 0.5 ml ONCE ONCE IM 10/20/17 10:00 10/20/17 10:01 A/P Assessment and Plan Upper GI bleed. EtOH use binge drinking. Counselled extensively. No signs of withdrawals at this time monitor for withdrawal symptoms. Received bolus of pantoprazole in the emergency room and octreotide. Continue omeprazole 40 mg IV twice daily Consult GI for further evaluation and recommendations N.p.o. Hemoglobin is stable at this time. Monitor H&H and transfuse if hemoglobin less than 7 or if patient is symptomatic. Bilateral aspiration pneumonia. CT P/A reviewed reveals bibasilar infiltrates. Start clindamycin IV. Check blood cultures. Check sputum cultures. Legionella antigen and Pneumococcal antigen. continue present care. Chronic back pain. Patient is nothing by mouth morphine 2 mg every 4 hours as needed. Resume chronic medications [place] 7.5/325 4 hours. P.o. Uncontrolled insulin-dependent diabetes mellitus. -Appears to be controlled on low dose insulin regimen, home Levemir dose here. -a1c ordered and pending Diabetic neuropathy. Chronic. Continue home medications Insomnia. Chronic. Continue home medications. Alcohol abuse started on CIWA protocol Medical Non compliance strongly recommended to follow medical recommendations in the future. diet and exercise. Obesity strongly recommended diet and exercise. Hypertension uncontrolled started on Clonidine and following. Electrolyte derangement replaced and following. Discussed Condition With Patient, nurse, ED physician. Discharge Planning Once cleared by GI specialist. Satish Lebron MD Oct 20, 2017 09:07
[2017-10-20] MEDS: ONDANSETRON HCL 4 MG/2 ML VIAL IVP PRN (09:15)
[2017-10-20] MEDS ORDERED: INFLUENZA VIRUS VACCINE (QUADRIVALENT) 0.5 ML SYR IM ONE (10:00)
[2017-10-20] MEDS ORDERED: LORazepam 2 MG/ML VIAL IV PUSH PRN (10:30)
[2017-10-20] MEDS: INSULIN ASPART SUPPLEMENTAL SCALE SQ SCH ×4 (10:32→20:58)
[2017-10-20] MEDS: THIAMINE INJ 100 MG in SODIUM CHLORIDE 0.9% INJ 100 ML IV SCH (10:51)
[2017-10-20 11:27] LABS: CHOLESTEROL 219 MG/DL (120-200); TRIGLYCERIDES 144 MG/DL (42-150)
[2017-10-20 11:52] LABS: CHOLESTEROL/ HDL RATIO 3.98 RATIO; FREE T4 1.13 NG/DL (0.76-1.46); HDL CHOLESTEROL 54.9 MG/DL (40.0-60.0); LDL CHOLESTEROL 135 MG/DL (0-99); PHOSPHORUS 1.8 MG/DL (2.5-4.9)
[2017-10-20 11:53] LABS: FOLATE GREATER THAN 20.0 NG/ML (3.1-17.5)
[2017-10-20] MEDS ORDERED: PROPOFOL 200 MG/20 ML AMP IV ONE (12:00)
[2017-10-20] MEDS: RESP: ALBUTEROL 2.5 MG/IPRATROPIUM 0.5 MG NEB (SCH) NEB ×4 (12:00→23:30)
[2017-10-20] MEDS ORDERED: SUCCINYLCHOLINE CHLORIDE 100 MG/5 ML SYRINGE IV PUSH ONE (12:00)
[2017-10-20] MEDS ORDERED: PHENYLEPH/NS 1000 MCG/10 ML SYR IV ONE (12:00)
[2017-10-20] MEDS: METOCLOPRAMIDE HCL 10 MG/2 ML VIAL IV PUSH PRN (12:08)
[2017-10-20] MEDS ORDERED: cloNIDine HCL 0.1 MG TAB PO ONE (12:30)
[2017-10-20] MEDS: MULTIVITAMIN INJ 10 ML, FOLIC ACID INJ 1 MG in SODIUM CHLORID 0.9% 500 ML INJ 500 ML IV SCH (12:49)
--- NOTE | 2017-10-20 13:29 | PD.CONS ---
HPI History of Present Illness This is a 56 year old male was admitted on 10/19/2017 with symptoms of nausea, vomiting, and coffee-ground emesis after drinking 8 beers according to the record. Patient states that he does drink beer on a routine basis and admits to at least twice a week. Patient has a female commutator undercutter with him which states that he drinks very heavily and daily. Since patient's admission he has continued with nausea and vomiting and is currently receiving anti-emetics. Coffee-ground emesis has now subsided; most of patient's emesis is mucoid and clear. Patient notes acute onset of diarrhea 2 days with melena and gastric upper GI abdominal tenderness with light palpation, which has now subsided. Patient is from the [facility] and is followed by the [facility] in which he is insisting that he needs to be home in 3 days. Patient denies any tobacco usage or illicit drug usage. Positive for family colon cancer with his father. No previous EGD, has had previous colonoscopy but unknown date. Patient is a diabetic with bilateral BKA's. Current hemoglobin 12.9. Patient is contact isolation for history of MRSA. CT scan done on admission shows small hiatal hernia, diffuse fatty liver disease, gallstone 1, and atrophic pancreatic changes. (Julissa Coyle) PFSH Past Medical History Diabetes mellitus Diabetic neuropathy Peripheral artery disease Insomnia. Alcohol dependence Past Surgical History Peripheral artery disease with left leg stenting. Laser eye surgery Bilateral BKAs with prosthesis 2 Colonoscopy unknown date (Julisas Coyle) Coded Allergies: penicillin G (Unverified Allergy, Mild, RASH, 10/19/17) Family History Both parents with diabetes mellitus. Father secondary to colon cancer at age 85. Mother unknown cause of . Social History Nonsmoker. Heavy alcohol consumption according to female friend with patient. Patient states beer large consumption at least twice a week denies illicit drug. (Julissa Coyle) Review of Systems Gastrointestinal: COMPLAINS OF: Nausea, Vomiting, Hematemesis (Julissa Coyle) GI Exam Vitals I&O Vital Signs Date Time Temp Pulse Resp B/P (MAP) Pulse Ox O2 Delivery O2 Flow Rate FiO2 10/20/17 12:00 98.2 75 20 188/86 (120) 95 10/20/17 09:25 94 Room Air 10/20/17 08:00 97.7 70 20 179/80 (113) 91 10/20/17 05:10 98.6 70 16 120/63 (82) 92 10/20/17 03:43 71 10/20/17 00:20 98.8 84 19 171/79 (109) 95 10/20/17 00:00 98.8 64 19 171/79 (109) 95 10/19/17 23:44 74 10/19/17 20:00 97.1 80 20 120/89 (99) 95 10/19/17 18:52 10/19/17 18:00 94 18 165/87 (113) 99 Room Air 10/19/17 15:23 18 10/19/17 15:18 98.0 98 18 156/91 (112) 94 10/19/17 14:15 93 21 I/O 10/19/17 10/19/17 10/19/17 10/20/17 10/20/17 10/20/17 07:00 15:00 23:00 07:00 15:00 23:00 Intake Total 50 ml 1300 ml Output Total 0 ml Balance 50 ml 1300 ml Intake Oral 250 ml IV Total 50 ml 1050 ml Output Urine Total 0 ml # Bowel Movements 0 Imaging Last Impressions Abdomen/Pelvis CT 10/19/17 1524 Signed Impressions: Service Date/Time: Thursday, October 19, 2017 16:58 - CONCLUSION: 1. Peribronchial airspace disease in the right base concerning for developing pneumonic infiltrate. This is only partially evaluated on the current exam however, basilar infiltrates can cause referred upper abdominal pain. 2. Small hiatal hernia. 3. Diffuse hepatic fatty infiltration. 4. Small, isolated gallstone. 5. Atrophic changes of the pancreas. Omari Ross MD Laboratory Test 10/19/17 15:30 10/20/17 01:30 10/20/17 04:00 10/20/17 10:40 White Blood Count 11.0 TH/MM3 10.4 TH/MM3 Red Blood Count 4.96 MIL/MM3 4.49 MIL/MM3 Hemoglobin 14.7 GM/DL 12.9 GM/DL Hematocrit 41.7 % 38.7 % Mean Corpuscular Volume 84.1 FL 86.1 FL Mean Corpuscular Hemoglobin 29.7 PG 28.8 PG Mean Corpuscular Hemoglobin Concent 35.3 % 33.4 % Red Cell Distribution Width 14.7 % 14.7 % Platelet Count 182 TH/MM3 192 TH/MM3 Mean Platelet Volume 9.3 FL 9.9 FL Neutrophils (%) (Auto) 85.2 % 78.2 % Lymphocytes (%) (Auto) 5.7 % 10.2 % Monocytes (%) (Auto) 8.9 % 11.2 % Eosinophils (%) (Auto) 0.0 % 0.1 % Basophils (%) (Auto) 0.2 % 0.3 % Neutrophils # (Auto) 9.3 TH/MM3 8.2 TH/MM3 Lymphocytes # (Auto) 0.6 TH/MM3 1.1 TH/MM3 Monocytes # (Auto) 1.0 TH/MM3 1.2 TH/MM3 Eosinophils # (Auto) 0.0 TH/MM3 0.0 TH/MM3 Basophils # (Auto) 0.0 TH/MM3 0.0 TH/MM3 CBC Comment DIFF FINAL DIFF FINAL Differential Comment Prothrombin Time 9.8 SEC Prothromb Time International Ratio 1.0 RATIO Activated Partial Thromboplast Time 23.1 SEC Blood Urea Nitrogen 16 MG/DL 19 MG/DL Creatinine 0.90 MG/DL 1.11 MG/DL Random Glucose 285 MG/DL 263 MG/DL Total Protein 7.9 GM/DL 7.2 GM/DL Albumin 3.3 GM/DL 2.7 GM/DL Calcium Level 9.4 MG/DL 8.5 MG/DL Magnesium Level 1.8 MG/DL 2.0 MG/DL Alkaline Phosphatase 83 U/L 80 U/L Aspartate Amino Transf (AST/SGOT) 14 U/L 15 U/L Alanine Aminotransferase (ALT/SGPT) 19 U/L 15 U/L Total Bilirubin 1.0 MG/DL 1.0 MG/DL Sodium Level 140 MEQ/L 143 MEQ/L Potassium Level 3.7 MEQ/L 3.8 MEQ/L Chloride Level 102 MEQ/L 105 MEQ/L Carbon Dioxide Level 26.4 MEQ/L 26.3 MEQ/L Anion Gap 12 MEQ/L 12 MEQ/L Estimat Glomerular Filtration Rate 87 ML/MIN 69 ML/MIN Lipase 50 U/L Urine Color YELLOW Urine Turbidity CLEAR Urine pH 6.5 Urine Specific [place] 1.033 Urine Protein 300 mg/dL Urine Glucose (UA) 1000 mg/dL Urine Ketones 10 mg/dL Urine Occult Blood MOD Urine Nitrite NEG Urine Bilirubin NEG Urine Urobilinogen LESS THAN 2.0 MG/DL Urine Leukocyte Esterase NEG Urine RBC 1 /hpf Urine WBC 1 /hpf Microscopic Urinalysis Comment CULT NOT INDICATED Phosphorus Level 1.8 MG/DL Triglycerides Level 144 MG/DL Cholesterol Level 219 MG/DL LDL Cholesterol 135 MG/DL HDL Cholesterol 54.9 MG/DL Cholesterol/HDL Ratio 3.98 RATIO Vitamin B12 Level 391 PG/ML Folate GREATER THAN 20.0 NG/ML Free Thyroxine 1.13 NG/DL Thyroid Stimulating Hormone 3rd Gen 1.070 uIU/ML Date/Time Source Procedure Growth Status 10/20/17 10:40 Blood Peripheral Aerobic Blood Culture Pending Received 10/20/17 10:40 Blood Peripheral Anaerobic Blood Culture Pending Received 10/20/17 10:00 Sputum Expectorated Sputum Gram Stain Pending Received 10/20/17 10:00 Sputum Expectorated Sputum Sputum Culture Pending Received Physical Examination HEENT: Pupils round and reactive to light; normocephalic; atraumatic; NECK: Neck is supple, CHEST: No obvious rhonchi or wheezing CARDIAC: Regular rate and rhythm ABDOMEN: Round, obese, soft, nondistended, nontender to light palpation bowel sounds are present in all four quadrants. EXTREMITIES: Bilateral BKA SKIN: Normal; no rash; no jaundice. GENERAL SCIENCE TEACHER: No focal deficits; alert and oriented times three., Mild anxiety (Julissa Coyle) Assessment and Plan Assessment: (1) GI bleed ICD Codes: K92.2 - Gastrointestinal hemorrhage, unspecified Status: Acute (2) Nausea and vomiting ICD Codes: R11.2 - Nausea with vomiting, unspecified Status: Acute Plan Nausea and vomiting with coffee-ground emesis approximately 24 hours ago. Coffee-ground emesis has subsided patient continues with uncontrolled nausea and vomiting, clear mucoid. Tenderness in the upper gastric abdominal area with light palpation, diarrhea 2 with dark stools 24 hours ago now subsided. EtOH dependence probable heavy beer drinking, probable daily according to female commutator undercutter. Patient admits to at least twice a week [facility] and is fairly insistent on being and out of the hospital and back in [facility] by which is 3 days. Initially patient was refusing EGD, but has decided that he will move forward with testing. Patient is currently n.p.o. Plan Consent for EGD today, called and scheduled N.p.o. for now Anti-emetics, Add Phenergan PPI [place]all protocol Reglan Monitor labs Further recommendations after EGD This patient was seen per myself and Dr. Kelly, note was written on his behalf (Julissa Coyle) Physician Comments Patient seen and examined Agree with above Continue with current supportive care Monitor labs We will proceed with an EGD today (Trey Kelly MD) Julissa Coyle Oct 20, 2017 13:29 Trey Kelly MD Oct 20, 2017 17:37
[2017-10-20] MEDS ORDERED: PROMETHAZINE INJ 25 MG/ML VIAL IM PRN (13:30)
[2017-10-20] MEDS ORDERED: POTASSIUM PHOSPHATE INJ 21 MMOL in SODIUM CHLORIDE 0.9% INJ 150 ML IV ONE (14:00)
[2017-10-20] MEDS: cloNIDine HCL 0.1 MG TAB PO SCH ×2 (14:53→21:01)
[2017-10-20 16:30] LABS: HEMOGLOBIN A1C 12.7 % (4.3-6.0)
--- NOTE | 2017-10-20 17:55 | PD.PROCEDR ---
GI Procedure PROCEDURE PERFORMED EGD with biopsies INDICATION FOR PROCEDURE Nausea vomiting, coffee-ground emesis PROCEDURE: The procedure, risks and benefits were discussed with Patient/POA and informed consent was obtained. Anesthesia sedated Patient with Diprivan. Patient was placed in the left lateral decubitus position. EGD: The Pentax videoscope was introduced through the oropharynx and advanced to the second portion of the duodenum under direct visualization. Retroflexion was performed in the stomach. FINDINGS: There were whitish patches on the larynx of unclear significance may represent reflux type injury The esophagus there was significant distal esophageal mucosal erythema with ulcerations and erosions suggestive of grade 4 reflux esophagitis this was biopsied The stomach there was some mild patchy erythema noted in the gastric body and antrum but otherwise gastric mucosa was unremarkable with no ulcers or erosions The duodenum this was normal ESTIMATED BLOOD LOSS: None SPECIMENS REMOVED: Esophageal biopsies COMPLICATIONS: None IMPRESSION: Possible laryngeal injury from reflux with whitish plaques Severe grade D reflux esophagitis Mild gastritis PLAN: Await biopsies Continue with PPI Avoid alcohol Recommend ENT evaluation Recommend EGD in 2 months Recommend follow-up with GI post discharge Continue with current supportive care Trey Kelly MD Oct 20, 2017 17:55
[2017-10-20] MEDS ORDERED: DO NOT ADM ANY ANTICOAGULANT DRUGS PRN (17:56)
[2017-10-20] MEDS ORDERED: *RESP: ALBUTEROL 2.5 MG/3 ML NEB (PRN) PERIprocedural Use ONLY NEB ONE (18:31)
[2017-10-20] MEDS: ZOLPIDEM TARTRATE 5 MG TAB PO PRN (20:58)
[2017-10-20] MEDS: guaiFENesin E.R. 600 MG TAB PO SCH (20:59)
[2017-10-21] VITALS (12 sets, daily range): BP systolic 91–169; BP diastolic 54–77; PULSE 50–86; RESP 16–18; TEMP 97.9–98.8; O2SAT 92–96
[2017-10-21] MEDS: CLINDAMYCIN 900 MG/NS PREMIX 50 ML IV SCH ×3 (00:33→11:34)
[2017-10-21] MEDS: SODIUM CHLOR 0.45% 1000 ML INJ 1,000 ML IV SCH ×2 (00:35→14:17)
[2017-10-21] MEDS: ACETAMINOPHEN/HYDROcodone 325 MG/7.5 MG TAB PO PRN ×4 (01:39→21:51)
[2017-10-21] MEDS: RESP: ALBUTEROL 2.5 MG/IPRATROPIUM 0.5 MG NEB (SCH) NEB ×6 (03:36→23:16)
[2017-10-21] MEDS: cloNIDine HCL 0.1 MG TAB PO SCH ×3 (05:40→21:50)
[2017-10-21] MEDS: PANTOPRAZOLE SODIUM 40 MG VIAL IV PUSH SCH ×2 (05:42→18:08)
[2017-10-21 06:46] LABS: ALBUMIN 2.6 GM/DL (3.4-5.0); BICARBONATE 23.8 MEQ/L (21.0-32.0); BLOOD UREA NITROGEN 25 MG/DL (7-18); CALCIUM 8.3 MG/DL (8.5-10.1); CHLORIDE 106 MEQ/L (98-107); CREATININE 1.14 MG/DL (0.60-1.30); GLOMERULAR FILTRATION RATE 66 ML/MIN (>89); GLUCOSE,RANDOM 197 MG/DL (74-106); SODIUM (NA) 141 MEQ/L (136-145)
[2017-10-21 06:48] LABS: ALT (GPT) 15 U/L (12-78); AST (GOT) 28 U/L (15-37)
[2017-10-21 06:50] LABS: ALKALINE PHOSPHATASE 71 U/L (45-117); TOTAL BILIRUBIN ADULT 0.8 MG/DL (0.2-1.0); TOTAL PROTEIN 7.1 GM/DL (6.4-8.2)
[2017-10-21 07:07] LABS: HEMOGLOBIN 12.5 GM/DL (13.0-17.0); MEAN CELL VOLUME 88.1 FL (80.0-100.0); MEAN CORPUSCULAR HEMOGLOBIN 29.6 PG (27.0-34.0); MEAN CORPUSCULAR HGB CONC 33.7 % (32.0-36.0); MEAN PLATELET VOLUME 9.8 FL (7.0-11.0); PLATELET COUNT 201 TH/MM3 (150-450); RED BLOOD COUNT 4.21 MIL/MM3 (4.50-5.90); RED CELL DISTRIBUTION WIDTH 15.4 % (11.6-17.2); WHITE BLOOD COUNT 9.7 TH/MM3 (4.0-11.0)
[2017-10-21] MEDS: PREGABALIN 100 MG CAP PO SCH ×2 (09:03→21:51)
[2017-10-21] MEDS: guaiFENesin E.R. 600 MG TAB PO SCH ×2 (09:03→21:50)
[2017-10-21] MEDS: METOCLOPRAMIDE HCL 10 MG TAB PO SCH ×4 (09:03→21:50)
[2017-10-21] MEDS: INSULIN ASPART SUPPLEMENTAL SCALE SQ SCH ×4 (09:04→21:49)
[2017-10-21] MEDS: SODIUM CHLORIDE 0.9% FLUSH 10 ML FLUSH IV FLUSH SCH ×2 (09:04→21:55)
[2017-10-21] MEDS: THIAMINE INJ 100 MG in SODIUM CHLORIDE 0.9% INJ 100 ML IV SCH (09:04)
[2017-10-21] MEDS: MULTIVITAMIN INJ 10 ML, FOLIC ACID INJ 1 MG in SODIUM CHLORID 0.9% 500 ML INJ 500 ML IV SCH (12:33)
--- NOTE | 2017-10-21 13:02 | HHI.GIFU ---
Subjective Remarks Pt resting in bed. No n/v today. Tolerating clears. Anxious for flight to [place] for prostheses fitting. (Isabella DiorP) Objective Vitals I&O Vital Signs Date Time Temp Pulse Resp B/P (MAP) Pulse Ox O2 Delivery O2 Flow Rate FiO2 10/21/17 12:00 98.4 63 16 129/73 (91) 92 10/21/17 08:34 21 10/21/17 08:00 Room Air 10/21/17 08:00 57 10/21/17 08:00 98.1 59 16 122/59 (80) 92 10/21/17 04:00 98.8 65 18 91/54 (66) 94 10/21/17 03:47 63 10/21/17 00:00 98.4 86 18 122/68 (86) 95 10/20/17 23:48 67 10/20/17 20:00 98.5 79 20 117/69 (85) 93 10/20/17 20:00 98 10/20/17 19:49 94 10/20/17 19:45 Nasal Cannula 2.00 10/20/17 18:45 98.3 75 20 157/69 (98) 97 Nasal Cannula 2 10/20/17 18:30 66 20 123/58 (79) 94 Nasal Cannula 2 10/20/17 18:15 66 15 100/54 (69) 93 Nasal Cannula 2 10/20/17 18:00 75 21 110/59 (76) 93 Nasal Cannula 2 10/20/17 17:53 97.8 68 14 110/56 (74) 95 Simple Mask 6 10/20/17 15:44 82 10/20/17 15:36 97.9 73 20 193/90 (124) 95 10/20/17 15:32 165/100 (121) 10/20/17 14:46 70 203/98 (133) I/O 10/20/17 10/20/17 10/20/17 10/21/17 10/21/17 10/21/17 07:00 15:00 23:00 07:00 15:00 23:00 Intake Total 1300 ml 151 ml 357 ml 240 ml Output Total 0 ml 1300 ml Balance 1300 ml 151 ml 357 ml -1060 ml Intake Oral 250 ml 0 ml 240 ml IV Total 1050 ml 151 ml 157 ml Other 200 ml Output Urine Total 0 ml 1300 ml # Voids 3 0 # Bowel Movements 0 1 0 Laboratory Laboratory Tests Test 10/21/17 04:10 White Blood Count 9.7 Red Blood Count 4.21 Hemoglobin 12.5 Hematocrit 37.0 Mean Corpuscular Volume 88.1 Mean Corpuscular Hemoglobin 29.6 Mean Corpuscular Hemoglobin Concent 33.7 Red Cell Distribution Width 15.4 Platelet Count 201 Mean Platelet Volume 9.8 Blood Urea Nitrogen 25 Creatinine 1.14 Random Glucose 197 Total Protein 7.1 Albumin 2.6 Calcium Level 8.3 Alkaline Phosphatase 71 Aspartate Amino Transf (AST/SGOT) 28 Alanine Aminotransferase (ALT/SGPT) 15 Total Bilirubin 0.8 Sodium Level 141 Potassium Level 3.5 Chloride Level 106 Carbon Dioxide Level 23.8 Anion Gap 11 Estimat Glomerular Filtration Rate 66 Date/Time Source Procedure Growth Status 10/20/17 10:40 Blood Peripheral Aerobic Blood Culture - Preliminary NO GROWTH IN 1 DAY Resulted 10/20/17 10:40 Blood Peripheral Anaerobic Blood Culture - Final QNS - SEE AEROBE REPORT Resulted 10/20/17 10:00 Sputum Expectorated Sputum Gram Stain - Final Resulted 10/20/17 10:00 Sputum Expectorated Sputum Sputum Culture Pending Resulted 10/20/17 01:30 Urine Clean Catch Legionella Antigen - Final PRESUMPTIVE NEGATIVE FOR LEGIONELLA P... Complete 10/20/17 01:30 Urine Clean Catch Streptococcus pneumoniae Antigen (M - Final PRESUMPTIVE NEGATIVE FOR STREPTOCOCCU... Complete Imaging Last Impressions Abdomen/Pelvis CT 10/19/17 1524 Signed Impressions: Service Date/Time: Thursday, October 19, 2017 16:58 - CONCLUSION: 1. Peribronchial airspace disease in the right base concerning for developing pneumonic infiltrate. This is only partially evaluated on the current exam however, basilar infiltrates can cause referred upper abdominal pain. 2. Small hiatal hernia. 3. Diffuse hepatic fatty infiltration. 4. Small, isolated gallstone. 5. Atrophic changes of the pancreas. Omari Ross MD Physical Exam HEENT: PERRL; normocephalic; atraumatic; no jaundice. CHEST: respirations even, unlabored CARDIAC: RRR ABDOMEN: Soft,protuberant, nontender; no hepatosplenomegaly; bowel sounds are present in all four quadrants. EXTREMITIES:bilat BKA SKIN: Normal; no rash; no jaundice. MENHADEN VESSEL PILOT: No focal deficits; alert and oriented times three. (Isabella Dior) Assessment and Plan Assessment: (1) GI bleed ICD Codes: K92.2 - Gastrointestinal hemorrhage, unspecified Status: Acute (2) Nausea and vomiting ICD Codes: R11.2 - Nausea with vomiting, unspecified Status: Acute Plan Nausea and vomiting with coffee-ground emesis approximately 24 hours ago. Coffee-ground emesis has subsided patient continues with uncontrolled nausea and vomiting, clear mucoid. Tenderness in the upper gastric abdominal area with light palpation, diarrhea 2 with dark stools 24 hours ago now subsided. EtOH dependence probable heavy beer drinking, probable daily according to female agricultural research engineer. Patient admits to at least twice a week [facility] and is fairly insistent on being and out of the hospital and back in [facility] by which is 3 days. Initially patient was refusing EGD, but has decided that he will move forward with testing. Patient is currently n.p.o. 10/21/17 s/p EGD with finding possible laryngeal injury from reflux, whitish plaques, severe grade D esophagitis, mild gastritis. he is doing better today, n/v improved. ENT consult pending. d/w attending PLAN - await bx - PPI BID - full liquids - await ENT consult pt see by myself and Dr Kelly and this note is on his behalf (Isabella Dior) Physician Comments Patient seen and examined Agree with above Continue with current supportive care Monitor lab We will advance diet (Trey Kelly MD) Isabella Dior Oct 21, 2017 13:02 Trey Kelly MD Oct 21, 2017 18:56
--- NOTE | 2017-10-21 16:16 | HHI.PR ---
Subjective Remarks up on the chair denies chronic alcohol use- - occasionally on weekends admits to reflux symptoms states no change in his voice has a flight going to [facility] for prosthesis fit this Objective Vitals Vital Signs Date Time Temp Pulse Resp B/P (MAP) Pulse Ox O2 Delivery O2 Flow Rate FiO2 10/21/17 15:25 96 21 10/21/17 13:24 64 169/77 (107) 96 10/21/17 12:05 62 10/21/17 12:00 98.4 63 16 129/73 (91) 92 10/21/17 08:34 21 10/21/17 08:00 Room Air 10/21/17 08:00 57 10/21/17 08:00 98.1 59 16 122/59 (80) 92 10/21/17 04:00 98.8 65 18 91/54 (66) 94 10/21/17 03:47 63 10/21/17 00:00 98.4 86 18 122/68 (86) 95 10/20/17 23:48 67 10/20/17 20:00 98.5 79 20 117/69 (85) 93 10/20/17 20:00 98 10/20/17 19:49 94 10/20/17 19:45 Nasal Cannula 2.00 10/20/17 18:45 98.3 75 20 157/69 (98) 97 Nasal Cannula 2 10/20/17 18:30 66 20 123/58 (79) 94 Nasal Cannula 2 10/20/17 18:15 66 15 100/54 (69) 93 Nasal Cannula 2 10/20/17 18:00 75 21 110/59 (76) 93 Nasal Cannula 2 10/20/17 17:53 97.8 68 14 110/56 (74) 95 Simple Mask 6 I/O 10/20/17 10/20/17 10/20/17 10/21/17 10/21/17 10/21/17 07:00 15:00 23:00 07:00 15:00 23:00 Intake Total 1300 ml 151 ml 357 ml 240 ml 151 ml Output Total 0 ml 1300 ml Balance 1300 ml 151 ml 357 ml -1060 ml 151 ml Intake Oral 250 ml 0 ml 240 ml IV Total 1050 ml 151 ml 157 ml 151 ml Other 200 ml Output Urine Total 0 ml 1300 ml # Voids 3 0 # Bowel Movements 0 1 0 Result Diagram: 10/21/17 0410 10/21/17 0410 Other Results Last Impressions Abdomen/Pelvis CT 10/19/17 1524 Signed Impressions: Service Date/Time: Thursday, October 19, 2017 16:58 - CONCLUSION: 1. Peribronchial airspace disease in the right base concerning for developing pneumonic infiltrate. This is only partially evaluated on the current exam however, basilar infiltrates can cause referred upper abdominal pain. 2. Small hiatal hernia. 3. Diffuse hepatic fatty infiltration. 4. Small, isolated gallstone. 5. Atrophic changes of the pancreas. Omari Ross MD Imaging awake and alert, oriented x 3 anicteric no nuhcal rigidity'lungs- no rales regular rhythm abdomen soft, good bowel sounds extremities - bilateral BKA- prostheses in place Procedures 10/20 EGD - Possible laryngeal injury from reflux with whitish plaques Severe grade D reflux esophagitis Mild gastritis A/P Assessment and Plan 56 years old male Upper GI bleed S/P EGD with severe esophagitis, mild gastritis EtOH use binge drinking. Counselled extensively. No signs of withdrawals at this time monitor for withdrawal symptoms. change to po PPI on DC White plaques noted on larynx on EGD ENT consulted to evaluate larynx finding on EGD stat Diflucan awaiting pathology Bilateral aspiration pneumonia. CT P/A reviewed reveals bibasilar infiltrates. on clindamycin IV. Check blood cultures. Check sputum cultures. Change to po levaquin 750 mg daily Negative Legionella antigen and Pneumococcal antigen. continue present care. Chronic back pain. continue chronic medications [place] 7.5/325 4 hours. P.o. Uncontrolled insulin-dependent diabetes mellitus. A1C 12.9 - continue sliding scale , restart Levemir 10 untis hs (at home on 40) - patient states good hypoglycemic awareness - reinforced diet and compliance Diabetic neuropathy. Chronic. Continue home medications Insomnia. Chronic. Continue home medications. Alcohol abuse - on [facility] protocol Medical Non compliance strongly recommended to follow medical recommendations in the future. diet and exercise. Obesity strongly recommended diet and exercise. Hypertension uncontrolled- on admission. Improved readings. started on Clonidine. consider adding RICARDO or CCB inhibitor. will benefit. Electrolyte derangement replaced and following. Miguel Ramirez MD Oct 21, 2017 16:16
[2017-10-21] MEDS ORDERED: LEVOFLOXACIN 500 MG TAB PO SCH (16:30)
--- NOTE | 2017-10-21 20:22 | RADRPT ---
EXAM DATE/TIME: 10/21/2017 19:58 [place] COMPARISON: No previous studies available for comparison. INDICATIONS : Shortness of breath. MEDICAL HISTORY : Diabetes. SURGICAL HISTORY : Bilateral below knee amputation. ENCOUNTER: Initial ACUITY: 3 days PAIN SCORE: 0/10 LOCATION: Bilateral chest FINDINGS: There is patchy pneumonia in the right lung, appears to be mostly in the lower lobe. Left lung appear s reasonably clear. No pleural effusion seen. No pneumothorax. Heart size within normal limits. CONCLUSION: Patchy pneumonia on the right. Shaan Rosado MD on October 21, 2017 at 20:19 Board Certified Radiologist. This report was verified electronically.
[2017-10-21] MEDS ORDERED: INSULIN DETEMIR 100 UNITS/ML VIAL SQ SCH (21:00)
[2017-10-21] MEDS: ZOLPIDEM TARTRATE 5 MG TAB PO PRN (21:50)
[2017-10-21] MEDS: FLUCONAZOLE 100 MG TAB PO SCH (21:54)
[2017-10-22] VITALS: BP 164/83; PULSE 58; RESP 16; TEMP 97.8; O2SAT 94
[2017-10-22] MEDS: RESP: ALBUTEROL 2.5 MG/IPRATROPIUM 0.5 MG NEB (SCH) NEB ×2 (03:25→08:00)
[2017-10-22 04:00] VITALS: BP 149/68; PULSE 52; RESP 17; TEMP 97.8; O2SAT 93
[2017-10-22 04:07] VITALS: PULSE 54
[2017-10-22] MEDS: ACETAMINOPHEN/HYDROcodone 325 MG/7.5 MG TAB PO PRN ×2 (04:40→08:36)
[2017-10-22] MEDS: cloNIDine HCL 0.1 MG TAB PO SCH (04:40)
[2017-10-22] MEDS: PANTOPRAZOLE SODIUM 40 MG VIAL IV PUSH SCH (04:41)
[2017-10-22 08:00] VITALS: PULSE 50
[2017-10-22] MEDS ORDERED: METOCLOPRAMIDE HCL 10 MG TAB PO SCH (08:00)
--- NOTE | 2017-10-22 08:03 | HHI.PR ---
Subjective Remarks awake and alert, no complains of abdominal pain nausea or vomiting + flatus, no diarrhea Objective Vitals Vital Signs Date Time Temp Pulse Resp B/P (MAP) Pulse Ox O2 Delivery O2 Flow Rate FiO2 10/22/17 04:07 54 10/22/17 04:00 97.8 52 17 149/68 (95) 93 10/22/17 00:00 97.8 58 16 164/83 (110) 94 10/21/17 23:42 52 10/21/17 20:15 Nasal Cannula 2.00 10/21/17 20:00 97.9 82 18 143/64 (90) 94 10/21/17 19:22 55 10/21/17 16:00 50 10/21/17 15:25 96 21 10/21/17 13:24 64 169/77 (107) 96 10/21/17 12:05 62 10/21/17 12:00 98.4 63 16 129/73 (91) 92 10/21/17 08:34 21 10/21/17 08:00 Room Air 10/21/17 08:00 57 10/21/17 08:00 98.1 59 16 122/59 (80) 92 I/O 10/21/17 10/21/17 10/21/17 10/22/17 10/22/17 10/22/17 07:00 15:00 23:00 07:00 15:00 23:00 Intake Total 240 ml 151 ml 1410.2 ml 420 ml Output Total 1300 ml 1400 ml Balance -1060 ml 151 ml 1410.2 ml -980 ml Intake Oral 240 ml 420 ml IV Total 151 ml 1410.2 ml Output Urine Total 1300 ml 1400 ml # Bowel Movements 0 0 Result Diagram: 10/21/17 0410 10/21/17 0410 Imaging Last Impressions Chest X-Ray 10/21/17 1638 Signed Impressions: Service Date/Time: Saturday, October 21, 2017 19:58 - CONCLUSION: Patchy pneumonia on the right. Shaan Rosado MD Abdomen/Pelvis CT 10/19/17 1524 Signed Impressions: Service Date/Time: Thursday, October 19, 2017 16:58 - CONCLUSION: 1. Peribronchial airspace disease in the right base concerning for developing pneumonic infiltrate. This is only partially evaluated on the current exam however, basilar infiltrates can cause referred upper abdominal pain. 2. Small hiatal hernia. 3. Diffuse hepatic fatty infiltration. 4. Small, isolated gallstone. 5. Atrophic changes of the pancreas. Omari Ross MD Objective Remarks awake and alert, no acute distress anicteric no nuchal rigidity no rales regular rhythm HR- 50- low 60s, abdomen soft, nontender bilateral BKA Procedures 10/20 EGD - Possible laryngeal injury from reflux with whitish plaques Severe grade D reflux esophagitis Mild gastritis A/P Assessment and Plan 56 years old male Upper GI bleed S/P EGD with severe esophagitis, mild gastritis EtOH use binge drinking. Counselled extensively. No signs of withdrawals at this time monitor for withdrawal symptoms. change to po PPI 40 bid continue on REglan 10 mg tid ac (patient on this chronically- likely with DM gastroparesis) advance diet- advice on reflux measures White plaques noted on larynx on EGD ENT consulted to evaluate larynx finding on EGD start Diflucan awaiting pathology Bilateral aspiration pneumonia. CT P/A reviewed reveals bibasilar infiltrates. on clindamycin IV. Change to po levaquin 750 mg daily Negative Legionella antigen and Pneumococcal antigen. continue present care. Chronic back pain. continue chronic medications [place] 7.5/325 4 hours. P.o. Uncontrolled insulin-dependent diabetes mellitus. A1C 12.9 - continue sliding scale , restart Levemir 10 untis hs (at home on 40)- increase to 15 untis hs - patient states good hypoglycemic awareness - reinforced diet and compliance Diabetic neuropathy. Chronic. Continue home medications Diabetic gasdtroapresis- well controlled on Reglan Hyperlipidemia- advise on diet -d/s with him statin- he will d/w with his PCP- has appt on Friday Insomnia. Chronic. Continue home medications. Alcohol abuse - on [facility] protocol Medical Non compliance strongly recommended to follow medical recommendations in the future. diet and exercise. Obesity strongly recommended diet and exercise. Hypertension uncontrolled- on admission. Better readings but not ideal and with Bradycardia. was started on Clonidine.-q 8. will decrease dose to once daily at hs- to prevent rebound HTN -HR- 50-60s on d/w with him -when asked about being on Ivy - like Enalapril- - states "sounds familiar" at one point was on this but was discontinued not recall if had cough reactions or any lab abnormalities or KI- was not told why will start on CCB for additional BP control as we decreased the Clonidine due to bradycardia Bilateral BKA- part of it from work work injury with poor healing patient is flying to [facility] tomorrow for fitting of prosthesis Miguel Ramirez MD Oct 22, 2017 08:03
[2017-10-22 08:06] VITALS: BP 147/81; PULSE 53; RESP 18; TEMP 98; O2SAT 92
[2017-10-22] MEDS ORDERED: LEVA750T9 PO (08:08)
[2017-10-22] MEDS ORDERED: PANT40TA3 PO (08:08)
[2017-10-22] MEDS ORDERED: METO10TA PO (08:08)
[2017-10-22] MEDS ORDERED: DIFL100T PO (08:09)
[2017-10-22] MEDS ORDERED: AMLO5 PO (08:13)
[2017-10-22] MEDS: guaiFENesin E.R. 600 MG TAB PO SCH (08:35)
[2017-10-22] MEDS: PREGABALIN 100 MG CAP PO SCH (08:35)
[2017-10-22] MEDS: FLUCONAZOLE 100 MG TAB PO SCH (08:35)
[2017-10-22] MEDS: INSULIN ASPART SUPPLEMENTAL SCALE SQ SCH (08:37)
[2017-10-22] MEDS: SODIUM CHLORIDE 0.9% FLUSH 10 ML FLUSH IV FLUSH SCH (08:39)
[2017-10-22] MEDS ORDERED: amLODIPine BESYLATE 5 MG TAB PO SCH (09:00)
[2017-10-22] MEDS ORDERED: THIAMINE HCL 100 MG TAB PO SCH (09:00)
[2017-10-22] MEDS ORDERED: LEVOFLOXACIN 750 MG TAB PO SCH (09:00)
[2017-10-22] MEDS ORDERED: PANTOPRAZOLE SOD 40 MG DELAYED RELEASE TAB PO SCH (09:00)
--- NOTE | 2017-10-22 10:01 | HHI.DS ---
Discharge Summary Admission Date Oct 19, 2017 at 19:32 Discharge Date: Oct 22, 2017 Admitting Diagnosis GI bleed, pneumonia Procedures 10/20 EGD - Possible laryngeal injury from reflux with whitish plaques Severe grade D reflux esophagitis Mild gastritis Brief History - From Admission 56-year-old male with a history of MRSA, IDDM with neuropathy, bilateral BKA who presented to ED for evaluation of nausea and vomiting ground coffee emesis after drinking 8 beers. Patient says he is not an everyday drinker. Says he went to a constitution party yesterday he drank 8 beers and ate 2 slices of pizza. He began vomiting shortly afterwards at approximately 2 AM. Since then he has vomited multiple times, coffee ground emesis according to EMS. He received 4 mg of IM Zofran by the fire department, then 8 mg of Zofran by EMS and he is still vomiting actively. He reports a burning periumbilical abdominal pain. He denies chest pain or shortness of breath, fevers or chills, flank pain, diarrhea or constipation. He reports that he drinks approximately twice a week. Denies any history of abdominal surgery. Denies any history of liver disease, peptic ulcer disease. He is not on any blood thinning medication. He has no other complaints at this time. CBC/BMP: 10/21/17 0410 10/21/17 0410 Significant Findings Laboratory Tests Test 10/19/17 15:30 10/20/17 01:30 10/20/17 04:00 10/20/17 10:40 Neutrophils (%) (Auto) 85.2 % (16.0-70.0) 78.2 % (16.0-70.0) Lymphocytes (%) (Auto) 5.7 % (9.0-44.0) Monocytes (%) (Auto) 8.9 % (0.0-8.0) 11.2 % (0.0-8.0) Neutrophils # (Auto) 9.3 TH/MM3 (1.8-7.7) 8.2 TH/MM3 (1.8-7.7) Lymphocytes # (Auto) 0.6 TH/MM3 (1.0-4.8) Monocytes # (Auto) 1.0 TH/MM3 (0-0.9) 1.2 TH/MM3 (0-0.9) Activated Partial Thromboplast Time 23.1 SEC (24.3-30.1) Random Glucose 285 MG/DL (74-106) 263 MG/DL (74-106) Albumin 3.3 GM/DL (3.4-5.0) 2.7 GM/DL (3.4-5.0) Aspartate Amino Transf (AST/SGOT) 14 U/L (15-37) Estimat Glomerular Filtration Rate 87 ML/MIN (>89) 69 ML/MIN (>89) Hemoglobin A1c 12.7 % (4.3-6.0) Lipase 50 U/L (73-393) Urine Protein 300 mg/dL (NEG-TRACE) Urine Glucose (UA) 1000 mg/dL (NEG) Urine Ketones 10 mg/dL (NEG) Urine Occult Blood MOD (NEG) Red Blood Count 4.49 MIL/MM3 (4.50-5.90) Hemoglobin 12.9 GM/DL (13.0-17.0) Hematocrit 38.7 % (39.0-51.0) Blood Urea Nitrogen 19 MG/DL (7-18) Phosphorus Level 1.8 MG/DL (2.5-4.9) Cholesterol Level 219 MG/DL (120-200) LDL Cholesterol 135 MG/DL (0-99) Folate GREATER THAN 20.0 NG/ML Test 10/21/17 04:10 Red Blood Count 4.21 MIL/MM3 (4.50-5.90) Hemoglobin 12.5 GM/DL (13.0-17.0) Hematocrit 37.0 % (39.0-51.0) Blood Urea Nitrogen 25 MG/DL (7-18) Random Glucose 197 MG/DL (74-106) Albumin 2.6 GM/DL (3.4-5.0) Calcium Level 8.3 MG/DL (8.5-10.1) Estimat Glomerular Filtration Rate 66 ML/MIN (>89) PE at Discharge awake and alert, no acute distress anicteric no nuchal rigidity no rales regular rhythm HR- 50- low 60s, abdomen soft, nontender bilateral BKA Pt update on day of discharge afebrile swallowing well no cough no abdominal pain reflux suymptoms improve Pt Condition on Discharge: Stable Discharge Disposition: Discharge Home Discharge Instructions DIET: Follow Instructions for: Heart Healthy Diet, Diabetic Diet Activities you can perform: Weight Bearing as Andrew Activities to Avoid: Strenuous Activity Follow up Referrals: Ear Nose Throat - 2-3 Days with [facility] - 2 Weeks with [facility]CP Follow-up - [facility] New Medications: Clonidine (Clonidine) 0.1 Mg Tab 0.1 MG PO HS for Blood Pressure Management, #30 TAB 0 Refills Amlodipine (Norvasc) 5 Mg Tab 5 MG PO DAILY for HTN for 30 Days, #30 TAB Fluconazole (Diflucan) 100 Mg Tab 100 MG PO DAILY for CANDinf for 5 Days, #5 TAB Levofloxacin (Levaquin) 750 Mg Tablet 750 MG PO DAILY for PNA for 5 Days, #5 TAB Metoclopramide (Metoclopramide) 10 Mg Tab 5 MG PO TIDAC for GI for 10 Days, TAB Pantoprazole (Pantoprazole) 40 Mg Tab 40 MG PO Q12HR for GERD/Esophgitis for 30 Days, TAB Continued Medications: Insulin Detemir Inj (Levemir Flextouch Pen Inj) 300 unit/3 ML Pen 42 UNITS SQ HS for Blood Sugar Management, PEN 0 Refills Insulin Lispro (Human) Inj (Humalog Inj) 1,000 Unit/10 Ml Vial 10 UNITS SQ TIDAC for Blood Sugar Management, #1 VIAL 0 Refills Pregabalin (Lyrica) 300 Mg Cap 300 MG PO BID, #60 CAP 0 Refills Miguel Ramirez MD Oct 22, 2017 10:01
[2017-10-22] MEDS ORDERED: CLON0.1T PO (10:07)
[2017-10-22] MEDS ORDERED: INSULIN DETEMIR 100 UNITS/ML VIAL SQ SCH (21:00)
[2017-10-23] MEDS ORDERED: THIAMINE HCL 100 MG TAB PO SCH (09:00)
== END 2017-10-22 10:51 | disposition home or self-care (01) | DRG 377 ==
LOC: NEPC 15:07 → NEDA 17:43 → N04B 18:51 → OBSVTOIN 19:32
PROVIDERS: ADMIT Internal Medicine; ATTEND Internal Medicine
PROC: 0DB58ZX Excision of Esophagus, Via Natural or Artificial Opening Endoscopic, Diagnostic (ICD-10-PCS; principal; 2017-10-20 17:30)
DX: K92.2 Gastrointestinal hemorrhage, unspecified (principal); J69.0 Pneumonitis due to inhalation of food and vomit; E11.51 Type 2 diabetes mellitus with diabetic peripheral angiopathy without gangrene; K76.0 Fatty (change of) liver, not elsewhere classified; G62.9 Polyneuropathy, unspecified; E11.43 Type 2 diabetes mellitus with diabetic autonomic (poly)neuropathy; K31.84 Gastroparesis; K44.9 Diaphragmatic hernia without obstruction or gangrene; K80.20 Calculus of gallbladder without cholecystitis without obstruction; G47.00 Insomnia, unspecified; G89.29 Other chronic pain; M54.9 Dorsalgia, unspecified; Z78.9 Other specified health status; F10.20 Alcohol dependence, uncomplicated; K21.0 Gastro-esophageal reflux disease with esophagitis; K29.70 Gastritis, unspecified, without bleeding; E11.65 Type 2 diabetes mellitus with hyperglycemia; E78.5 Hyperlipidemia, unspecified; I10 Essential (primary) hypertension; Z89.511 Acquired absence of right leg below knee; Z79.4 Long term (current) use of insulin; Z86.73 Personal history of transient ischemic attack (TIA), and cerebral infarction without residual deficits; Z86.14 Personal history of Methicillin resistant Staphylococcus aureus infection; Z89.512 Acquired absence of left leg below knee; Z83.3 Family history of diabetes mellitus; Z80.0 Family history of malignant neoplasm of digestive organs; Z91.19 Patient's noncompliance with other medical treatment and regimen
CPT/HCPCS: 71046; 74177; 80053; 80061; 81001; 82607; 82746; 82948; 83036; 83690; 83735; 84100; 84439; 84443; 85025; 85027; 85610; 85730; 86850; 86900; 86901; 87040; 87070; 87205; 87449; 88305; 93005; 94640; C9113; J0330; J1815; J2060; J2270; J2354; J2370; J2405; J2550; J2765; J3010; J3411; J7030; J7040; J7613; Q9967